=== PATIENT | female | born 1935 | race Caucasian/White ===

== ENCOUNTER 2016-09-30 09:45 | Outpatient (CLI) | payer OTHER ==
[2014-09-28 06:53] VITALS: BP 117/57
--- NOTE | 2016-09-30 11:11 | Diagnostic Imaging Report ---
MAXWELL CRUZ [facility] [address] [facility].[address] [address] Report Submission Date: Sep 30, 2016 10:58:38 AM CDT Patient Study Name: LEWIS JACK Date: Sep 30, 2016 10:06:00 AM CDT Modality Type: US Gender: F Description: UNILAT LTD STDY EXT VEINS : 31 Institution: [facility] Physician: MAXWELL CRUZ Examination: Ultrasound vein History: Calf discomfort Findings: Sonographic evaluation of the left lower extremity venous system from the groin to the popliteal fossa inclusive. Luminal filling defect identified beginning with at the level the proximal femoral vein extending inferiorly to the popliteal vein. No appreciable flow centrally. No response to augmentation. Remaining been structures without gross irregularity. No popliteal region fluid collection. Impression: Deep venous thrombosis identified extending from the proximal femoral vein inferiorly to the popliteal vein. Electronically signed on Sep 30, 2016 10:58:38 AM CDT by: Alvaro WHARTON
== END 2016-09-30 09:46 ==
LOC: RAD 09:45
PROVIDERS: ATTEND Physician Assistant
DX: M79.605 Pain in left leg (principal); M79.89 Other specified soft tissue disorders
CPT/HCPCS: 93971

== ENCOUNTER 2016-10-11 10:18 | Outpatient (CLI) | payer OTHER ==
[2014-09-28 06:53] VITALS: BP 117/57
[2016-10-11 11:04] LABS: eGFR (African) > 60; eGFR (Non-African) > 60
== END 2016-10-11 10:20 ==
LOC: LAB 10:18
PROVIDERS: ATTEND Physician Assistant
DX: I10 Essential (primary) hypertension (principal)
CPT/HCPCS: 36415; 80053

== ENCOUNTER 2016-11-12 11:35 | Inpatient (IN) | payer OTHER ==
[2016-11-12] MEDS ORDERED: LORATADINE 10 MG TABLET PO PRN (12:27)
--- NOTE | 2016-11-12 12:37 | History and Physical Report ---
History of Present Illnes - History of Present Illness Reason for Visit: Right middle lobe pneumonia, weakness History of Present Illness: This is an 81 year old patient of Dr. Clemente's who I saw last week with cough and wheezing. At that time, I treated her with cefuroxime at 250 mg po qd. She returns today for a recheck and continues to have shortness of breath and wheezing and just generally does not feel well. She denies any hemoptysis. Her chest X ray shows a right perihilar infiltrate and there may be some infiltrate in the right upper lobe also. She is on oxygen at home and has been using her nebulizer as well, but says that she is not getting much benefit from it. - Past Medical History Cardiac: HTN Pulmonary: Asthma Gastrointestinal: GERD, Other (Colon cancer 2012 - [id number]) Heme/Onc: Anemia NOS Psych: Anxiety Infectious Disease: Other (h/o C diff 2012) Endocrine: Osteoporosis - Past Surgical History Past Surgical History: Other (Right hemicolectomy for necrotic appendix (08/14) followed by further colonic resection in 01/14 due to colon cancer. Decortication of right sided empyema) - Past Social History Smoke: No Alcohol: None Drugs: None Lives: Alone ( a year ago.) Domestic Violence: Negative - Health Maintenance Health Maintenance: Influenza Vaccine, Pneumococcal Vaccine, Mammogram, Colonoscopy (05/19 - negative), DEXA Influenza Vaccine: Current for this Influenza Season Pneumonia Vaccine: Yes Resuscitation Status: Full code Review of Systems - Review of Systems Constitutional: Weakness, Malaise Eyes: negative: pain ENT: negative: Ear Pain Respiratory: Cough, SOB with Excertion, Wheezing, Other (productive cough) Cardiovascular: negative: Chest Pain Gastrointestinal: Vomiting. negative: Nausea Genitourinary: negative: Dysuria Musculoskeletal: negative: Neck Pain Skin: negative: Rash Neurological: Weakness. negative: Numbness, Change in Speech - Medications/Allergies Allergies/Adverse Reactions: Allergies Allergy/AdvReac Type Severity Reaction Status Date / Time penicillin G Allergy Unknown Verified 04/26/12 18:20 Current Inpatient Medications: Current Inpatient Medications Albuterol/Ipratropium (Duoneb) 3 ml NEB QID [facility] Carvedilol (Coreg) 12.5 mg PO BID [facility] Cholecalciferol (Vitamin D-3) 1,000 unit PO DAILY [facility] Ferrous Sulfate (Feosol) 325 mg PO [id number] [facility] Fluticasone Propionate (Flonase Nasal [place]) 1 spray NS DAILY [facility] Hydrochlorothiazide (Hydrodiuril) 25 mg PO DAILY [facility] Azithromycin 250 mg/ Sodium (Chloride) 250 mls @ 125 mls/hr IV Q24H [facility] Stop: 11/22/16 12:59 Ceftriaxone Sodium 1 gm/ (Sodium Chloride) 50 mls @ 100 mls/hr IV QD [facility] Loratadine (Claritin) 10 mg PO DAILY PRN PRN Reason: Allergy Symptoms Montelukast Sodium (Singulair) 10 mg PO HS [facility] Pantoprazole Sodium (Protonix) 40 mg PO 0700 [facility] Exam - Exam General: Alert, Oriented to Person, Oriented to Place, Mild distress (due to cough and wheezing) HEENT: Atraumatic, PERRLA Neck: No: Stridor Lungs: Wheezes, Prolonged Expiration, Decreased Air Movement Cardiovascular: Irregularly Irregular Murmur: No: Systolic Murmur Abdomen: Normal bowel sounds, Soft, No tenderness Genitourinary: No: Other Male Genitourinary: No: Other Female Genitourinary: No: Other Integumentary: Normal, [place], Warm Extremities: No clubbing, No cyanosis, Other (trace edema) Neurological: Normal speech Psych/Mental Status: Mental status NL - Laboratory Results Laboratory Results: CXR shows infiltrates as in HPI Labs pending Assessment/Plan - Assessment/Plan (1) Pneumonia Status: Acute Current Visit: Yes Qualifiers: Pneumonia type: due to unspecified organism Laterality: right Lung location: middle lobe of lung Qualified Code(s): J18.1 - Lobar pneumonia, unspecified organism Assessment: Suppemental O2/Rocephin/azithromycin (2) Asthma with acute exacerbation Status: Acute Current Visit: No Qualifiers: Asthma severity: moderate persistent Qualified Code(s): J45.41 - Moderate persistent asthma with (acute) exacerbation Assessment: Continue nebulizer treatments (3) Hypertension Status: Acute Current Visit: No Assessment: Continue current antihypertensive medications VTE Assessment - RISK FACTOR SCORE VTE RISK FACTOR SCORES: AGE OVER 60 YEARS, ACUTE INFECTION OTHER THEN SEPSIS ( On Eliquis) - RISK VTE MODERATE RISK: SCORE OF 2 (RISK PROXIMAL DVT 2-4%) PROPHYAXIS NEEDED
[2016-11-12 13:48] LABS: BASOPHILS % 0.3 (0.0-1.5); EOSINOPHILS % 1.3 % (0.0-6.8); MEAN CORPUSCULAR HEMOGLOBIN 30.8 pg (28.0-34.0); MEAN CORPUSCULAR VOLUME 98.3 fl (80.0-100.0); MONOCYTES % 2.6 % (0.0-11.0); NEUTROPHILS # 6.3 # k/uL (1.4-7.7)
[2016-11-12 14:07] LABS: eGFR (African) > 60; eGFR (Non-African) > 60
[2016-11-12] MEDS ORDERED: MONTELUKAST SODIUM 10 MG TABLET PO ONE (14:08)
[2016-11-12] MEDS: IPRATROPIUM/ALBUTEROL SULFATE 3 ML AMPUL.NEB NEB SCH ×3 (14:30→19:45)
--- NOTE | 2016-11-12 15:01 | Diagnostic Imaging Report ---
YSABEL SOLIMAN [facility] [address] [facility].[address] [address] Report Submission Date: Nov 12, 2016 2:53:44 PM CDT Patient Study Name: LEWIS JACK Date: Nov 12, 2016 11:41:52 AM CDT Modality Type: CR Gender: F Description: CHEST : 31 Institution: [facility] Physician: YSABEL SOLIMAN Chest -two views CLINICAL HISTORY: Cough and wheezing. FINDINGS: Examination of the chest in PA and lateral views with no prior film for comparison demonstrates right perihilar infiltrate. There is mild blunting of the right costophrenic angle. The left lung is clear. Cardiac silhouette is prominent and the aorta is atherosclerotic. IMPRESSION: Right perihilar infiltrate. Aortic atherosclerosis and mild cardiomegaly Electronically signed on Nov 12, 2016 2:53:44 PM CDT by: Valentin WHARTON
[2016-11-12 15:07] VITALS: BMI 70.7
[2016-11-12] MEDS ORDERED: SALINE FLUSH 10 ML DISP.SYRIN IVF ONE (15:24)
[2016-11-12] MEDS: cefTRIAXone SODIUM 1 GM in 0.9 % SODIUM CHLORIDE 50 ML IV SCH (15:46)
[2016-11-12] MEDS: AZITHROMYCIN 250 MG in 0.9 % SODIUM CHLORIDE 250 ML IV SCH (17:58)
[2016-11-12] MEDS: FERROUS SULFATE 325 MG TABLET PO SCH ×2 (19:02→19:47)
[2016-11-12] MEDS: CARVEDILOL 12.5 MG TABLET PO SCH (20:53)
[2016-11-12] MEDS: APIXABAN 2.5 MG TABLET PO SCH (20:54)
[2016-11-12] MEDS: MONTELUKAST SODIUM 10 MG TABLET PO SCH (20:55)
[2016-11-12] MEDS: MELATONIN 3 MG TABLET PO SCH (22:30)
[2016-11-13] MEDS: PANTOPRAZOLE SODIUM 40 MG TABLET PO SCH (06:37)
[2016-11-13 06:55] LABS: MEAN CORPUSCULAR HEMOGLOBIN 30.8 pg (28.0-34.0); MEAN CORPUSCULAR VOLUME 99.7 fl (80.0-100.0)
[2016-11-13 07:15] LABS: eGFR (African) > 60; eGFR (Non-African) > 60
--- NOTE | 2016-11-13 07:51 | Inpatient Progress Note ---
Subjective - Required Recertification Statement I anticipate X number of days because-include discharge plan: 2 - Review of Systems Subjective: Patient feeling some better today. Slept better with melatonin. Goes to bathroom without O2 on - does ok. Feels her nebulizers wear off. Pulmonary: Cough Objective - Exam Vitals and I&O: Vital Signs Temp 97.6 F 11/13/16 05:33 Pulse 94 H 11/13/16 05:33 Resp 16 11/13/16 05:33 BP 133/69 11/13/16 05:33 Pulse Ox 94 11/13/16 05:33 Intake & Output 11/12/16 11/12/16 11/13/16 11:59 23:59 11:59 Intake Total 530 360 Balance 530 360 Weight 159 kg Intake: Oral 530 360 Other: Voiding Method Toilet Toilet # Voids 2 3 General: Alert, Oriented to Person, Oriented to Place, Oriented to Time, Cooperative, No acute distress Lungs: Wheezes, Rhonchi Cardiovascular: Regular rate - Results Results: Laboratory Results WBC 6.00 K/ul (4.00-12.00) 11/13/16 06:40 RBC 3.93 M/ul (3.90-5.20) 11/13/16 06:40 Hgb 12.1 g/dL (12.0-16.0) 11/13/16 06:40 Hct 39.2 % (34.5-46.5) 11/13/16 06:40 MCV 99.7 fl (80.0-100.0) 11/13/16 06:40 MCH 30.8 pg (28.0-34.0) 11/13/16 06:40 MCHC 30.9 g/dL (30.0-36.0) 11/13/16 06:40 RDW 12.9 % (11.3-14.3) 11/13/16 06:40 Plt Count 198 K/mm3 (130-400) 11/13/16 06:40 Neut % (Auto) 83.3 % (39.0-79.0) H 11/12/16 13:40 Lymph % (Auto) 11.8 % (16.0-50.0) L 11/12/16 13:40 [place] % (Auto) 2.6 % (0.0-11.0) 11/12/16 13:40 Eos % (Auto) 1.3 % (0.0-6.8) 11/12/16 13:40 Baso % (Auto) 0.3 (0.0-1.5) 11/12/16 13:40 Neut # (Auto) 6.3 # k/uL (1.4-7.7) 11/12/16 13:40 Lymph # (Auto) 0.9 # k/uL (0.6-4.0) 11/12/16 13:40 [place] # (Auto) 0.2 # k/uL (0.0-0.9) 11/12/16 13:40 Eos # (Auto) 0.1 # k/uL (0.0-0.6) 11/12/16 13:40 Baso # (Auto) 0.0 # k/uL (0.0-0.5) 11/12/16 13:40 Reactive Lymphs % 0.7 % (0.0-5.0) 11/12/16 13:40 Reactive Lymphs # 0.0 # k/uL (0.0-0.8) 11/12/16 13:40 Sodium 142 mmol/L (136-145) 11/13/16 06:40 Potassium 4.1 mmol/L (3.5-5.0) 11/13/16 06:40 Chloride 105 mmol/L (98-110) 11/13/16 06:40 Carbon Dioxide 32 mmol/L (20-32) 11/13/16 06:40 BUN 16 mg/dL (10-26) 11/13/16 06:40 Creatinine 0.8 mg/dL (0.4-1.5) 11/13/16 06:40 Estimated Creat Clear 157 11/13/16 06:40 Est GFR ( Amer) > 60 (60-) 11/13/16 06:40 Est GFR (Non-Af Amer) > 60 (60-) 11/13/16 06:40 Glucose 99 mg/dL (70-99) 11/13/16 06:40 Calcium 10.7 mg/dL (8.5-10.5) H 11/13/16 06:40 Total Bilirubin 0.5 mg/dL (0.2-1.2) 11/12/16 13:40 AST 17 U/L (0-41) 11/12/16 13:40 ALT 13 U/L (0-45) 11/12/16 13:40 Alkaline Phosphatase 75 U/L (46-116) 11/12/16 13:40 Total Protein 6.9 g/dL (6.0-8.5) 11/12/16 13:40 Albumin 4.2 g/dL (3.0-5.5) 11/12/16 13:40 Assessment/Plan - Assessment/Plan (1) Pneumonia Status: Acute Current Visit: Yes Qualifiers: Pneumonia type: due to unspecified organism Laterality: right Lung location: middle lobe of lung Qualified Code(s): J18.1 - Lobar pneumonia, unspecified organism Plan: Continue on Rocephin and zithromax. Afebrile. (2) GERD (gastroesophageal reflux disease) Status: Acute Current Visit: Yes (3) Asthma with acute exacerbation Status: Acute Current Visit: No Qualifiers: Asthma severity: moderate persistent Qualified Code(s): J45.41 - Moderate persistent asthma with (acute) exacerbation Plan: Change duonebs to q6hr from qid to cover night better. Add solumedrol. (4) Hypertension Status: Acute Current Visit: No
[2016-11-13] MEDS ORDERED: SALINE FLUSH 10 ML DISP.SYRIN IVF ONE ×4 (08:03→21:17)
[2016-11-13] MEDS: FLUTICASONE PROPIONATE 120 SPRAY/16 GR BOTTLE NS SCH (08:40)
[2016-11-13] MEDS: methylPREDNISolone SOD SUCC 40 MG/ML VIAL IVP SCH ×3 (08:46→21:42)
[2016-11-13] MEDS: APIXABAN 2.5 MG TABLET PO SCH ×2 (08:47→20:35)
[2016-11-13] MEDS: CARVEDILOL 12.5 MG TABLET PO SCH ×2 (08:48→20:34)
[2016-11-13] MEDS: CHOLECALCIFEROL (VIT D3) 1,000 UNIT TABLET PO SCH (08:48)
[2016-11-13] MEDS: HYDROCHLOROTHIAZIDE 25 MG TABLET PO SCH (08:49)
[2016-11-13] MEDS: FERROUS SULFATE 325 MG TABLET PO SCH ×2 (10:54→18:09)
[2016-11-13] MEDS: AZITHROMYCIN 250 MG in 0.9 % SODIUM CHLORIDE 250 ML IV SCH (13:00)
[2016-11-13] MEDS: IPRATROPIUM/ALBUTEROL SULFATE 3 ML AMPUL.NEB NEB SCH ×2 (13:09→17:55)
[2016-11-13] MEDS: cefTRIAXone SODIUM 1 GM in 0.9 % SODIUM CHLORIDE 50 ML IV SCH (18:35)
[2016-11-13] MEDS: MONTELUKAST SODIUM 10 MG TABLET PO SCH (20:35)
[2016-11-13] MEDS: MELATONIN 3 MG TABLET PO SCH (20:36)
[2016-11-14] MEDS: IPRATROPIUM/ALBUTEROL SULFATE 3 ML AMPUL.NEB NEB SCH ×5 (00:54→23:53)
[2016-11-14] MEDS ORDERED: SALINE FLUSH 10 ML DISP.SYRIN IVF ONE ×3 (05:15→16:52)
[2016-11-14] MEDS: methylPREDNISolone SOD SUCC 40 MG/ML VIAL IVP SCH ×3 (05:20→20:40)
[2016-11-14] MEDS: PANTOPRAZOLE SODIUM 40 MG TABLET PO SCH (05:59)
[2016-11-14] MEDS: APIXABAN 2.5 MG TABLET PO SCH ×2 (08:44→20:38)
[2016-11-14] MEDS: CARVEDILOL 12.5 MG TABLET PO SCH ×2 (08:44→20:38)
[2016-11-14] MEDS: HYDROCHLOROTHIAZIDE 25 MG TABLET PO SCH (08:45)
[2016-11-14] MEDS: FLUTICASONE PROPIONATE 120 SPRAY/16 GR BOTTLE NS SCH (08:45)
[2016-11-14] MEDS: CHOLECALCIFEROL (VIT D3) 1,000 UNIT TABLET PO SCH (08:46)
--- NOTE | 2016-11-14 09:14 | Inpatient Progress Note ---
Subjective - Required Recertification Statement I anticipate X number of days because-include discharge plan: 1 - Review of Systems Subjective: Patient feels her breathing has improved with steroids. Less cough and wheezing. Objective - Exam Vitals and I&O: Vital Signs Temp 97.7 F 11/14/16 06:00 Pulse 67 11/14/16 06:00 Resp 16 11/14/16 06:00 BP 129/62 11/14/16 06:00 Pulse Ox 92 11/14/16 06:00 Intake & Output 11/13/16 11/13/16 11/14/16 11:59 23:59 11:59 Intake Total 266 788 3090 Balance 722 078 0230 Intake: IV 20 Right Hand 20 Oral 503 863 8498 Other: Voiding Method Toilet Toilet # Voids 3 5 General: Alert, Oriented to Person, Oriented to Place, Oriented to Time, Cooperative, No acute distress Lungs: Rhonchi (Greatly improved from yesterday.) Cardiovascular: Regular rate - Results Results: Laboratory Results WBC 6.00 K/ul (4.00-12.00) 11/13/16 06:40 RBC 3.93 M/ul (3.90-5.20) 11/13/16 06:40 Hgb 12.1 g/dL (12.0-16.0) 11/13/16 06:40 Hct 39.2 % (34.5-46.5) 11/13/16 06:40 MCV 99.7 fl (80.0-100.0) 11/13/16 06:40 MCH 30.8 pg (28.0-34.0) 11/13/16 06:40 MCHC 30.9 g/dL (30.0-36.0) 11/13/16 06:40 RDW 12.9 % (11.3-14.3) 11/13/16 06:40 Plt Count 198 K/mm3 (130-400) 11/13/16 06:40 Neut % (Auto) 83.3 % (39.0-79.0) H 11/12/16 13:40 Lymph % (Auto) 11.8 % (16.0-50.0) L 11/12/16 13:40 [place] % (Auto) 2.6 % (0.0-11.0) 11/12/16 13:40 Eos % (Auto) 1.3 % (0.0-6.8) 11/12/16 13:40 Baso % (Auto) 0.3 (0.0-1.5) 11/12/16 13:40 Neut # (Auto) 6.3 # k/uL (1.4-7.7) 11/12/16 13:40 Lymph # (Auto) 0.9 # k/uL (0.6-4.0) 11/12/16 13:40 [place] # (Auto) 0.2 # k/uL (0.0-0.9) 11/12/16 13:40 Eos # (Auto) 0.1 # k/uL (0.0-0.6) 11/12/16 13:40 Baso # (Auto) 0.0 # k/uL (0.0-0.5) 11/12/16 13:40 Reactive Lymphs % 0.7 % (0.0-5.0) 11/12/16 13:40 Reactive Lymphs # 0.0 # k/uL (0.0-0.8) 11/12/16 13:40 Sodium 142 mmol/L (136-145) 11/13/16 06:40 Potassium 4.1 mmol/L (3.5-5.0) 11/13/16 06:40 Chloride 105 mmol/L (98-110) 11/13/16 06:40 Carbon Dioxide 32 mmol/L (20-32) 11/13/16 06:40 BUN 16 mg/dL (10-26) 11/13/16 06:40 Creatinine 0.8 mg/dL (0.4-1.5) 11/13/16 06:40 Estimated Creat Clear 157 11/13/16 06:40 Est GFR ( Amer) > 60 (60-) 11/13/16 06:40 Est GFR (Non-Af Amer) > 60 (60-) 11/13/16 06:40 Glucose 99 mg/dL (70-99) 11/13/16 06:40 Calcium 10.7 mg/dL (8.5-10.5) H 11/13/16 06:40 Total Bilirubin 0.5 mg/dL (0.2-1.2) 11/12/16 13:40 AST 17 U/L (0-41) 11/12/16 13:40 ALT 13 U/L (0-45) 11/12/16 13:40 Alkaline Phosphatase 75 U/L (46-116) 11/12/16 13:40 Total Protein 6.9 g/dL (6.0-8.5) 11/12/16 13:40 Albumin 4.2 g/dL (3.0-5.5) 11/12/16 13:40 Assessment/Plan - Assessment/Plan (1) Pneumonia Status: Acute Current Visit: Yes Qualifiers: Pneumonia type: due to unspecified organism Laterality: right Lung location: middle lobe of lung Qualified Code(s): J18.1 - Lobar pneumonia, unspecified organism Plan: Continue IV antibiotics. Plan to transfer to SNF tomorrow if still doing well. (2) GERD (gastroesophageal reflux disease) Status: Acute Current Visit: Yes (3) Asthma with acute exacerbation Status: Acute Current Visit: No Qualifiers: Asthma severity: moderate persistent Qualified Code(s): J45.41 - Moderate persistent asthma with (acute) exacerbation Plan: Continue IV steroids. Plan to taper slowly when goes to po. (4) Hypertension Status: Acute Current Visit: No
[2016-11-14] MEDS: FERROUS SULFATE 325 MG TABLET PO SCH ×2 (09:23→18:13)
[2016-11-14 11:11] LABS: eGFR (African) > 60; eGFR (Non-African) > 60
[2016-11-14] MEDS: cefTRIAXone SODIUM 1 GM in 0.9 % SODIUM CHLORIDE 50 ML IV SCH (12:45)
[2016-11-14] MEDS: AZITHROMYCIN 250 MG in 0.9 % SODIUM CHLORIDE 250 ML IV SCH (14:44)
[2016-11-14] MEDS: MONTELUKAST SODIUM 10 MG TABLET PO SCH (20:39)
[2016-11-14] MEDS: MELATONIN 3 MG TABLET PO SCH (20:40)
[2016-11-15] MEDS ORDERED: SALINE FLUSH 10 ML DISP.SYRIN IVF ONE (02:43)
[2016-11-15] MEDS: PANTOPRAZOLE SODIUM 40 MG TABLET PO SCH (06:09)
[2016-11-15] MEDS: methylPREDNISolone SOD SUCC 40 MG/ML VIAL IVP SCH (06:09)
[2016-11-15] MEDS: IPRATROPIUM/ALBUTEROL SULFATE 3 ML AMPUL.NEB NEB SCH (06:15)
[2016-11-15] MEDS ORDERED: GUAIFENESIN PO PRN (07:51)
[2016-11-15] MEDS ORDERED: CODEINE PO PRN (07:51)
[2016-11-15] MEDS: FLUTICASONE PROPIONATE 120 SPRAY/16 GR BOTTLE NS SCH (09:25)
[2016-11-15] MEDS: CARVEDILOL 12.5 MG TABLET PO SCH (09:28)
[2016-11-15] MEDS: HYDROCHLOROTHIAZIDE 25 MG TABLET PO SCH (09:28)
[2016-11-15] MEDS: APIXABAN 2.5 MG TABLET PO SCH (09:28)
[2016-11-15] MEDS: CHOLECALCIFEROL (VIT D3) 1,000 UNIT TABLET PO SCH (09:28)
--- NOTE | 2016-11-15 09:28 | Discharge Summary ---
Discharge Summary - Discharge Sumary History of Present Illness: This is an 81 year old patient of Dr. Clemente'terry who I saw last week with cough and wheezing. At that time, I treated her with cefuroxime at 250 mg po qd. She returns today for a recheck and continues to have shortness of breath and wheezing and just generally does not feel well. She denies any hemoptysis. Her chest X ray shows a right perihilar infiltrate and there may be some infiltrate in the right upper lobe also. She is on oxygen at home and has been using her nebulizer as well, but says that she is not getting much benefit from it. Condition at Discharge: Stable Home Medications: Ambulatory Orders Medication Instructions Recorded Cetirizine HCl [Zyrtec] 10 mg PO D 09/05/14 Cholecalciferol [Vitamin D-3] 1,000 unit PO DAILY 09/05/14 Fluticasone Propionate [Flonase] 1 spray NS D 09/05/14 QUEtiapine FUMARATE [Seroquel] 25 mg PO HS 09/05/14 Consultations this Visit: None Procedures this Visit: None Allergies/Adverse Reactions: Allergies Allergy/AdvReac Type Severity Reaction Status Date / Time penicillin G Allergy Unknown Verified 04/26/12 18:20 Discharge Summary: Patient was admitted Acute for R perihilar pneumonia that failed outpatient treatment. She continued to have wheezing 24 hours after admit so IV steroids were started. She responded well to these. O2 to keep SATS >90%. We were able to wean down duonebs. Patient feeling much better but still too weak to return home therefore she was transferred to SNF. Hospital Course: Discharge DX: R pneumonia. Asthma exacerbation. HTN. Disposition: SNF
[2016-11-15] MEDS ORDERED: guaiFENesin/CODEINE PHOS 5ML SYR PO ONE ×3 (09:31→13:14)
[2016-11-15 09:48] VITALS: BP 150/70
[2016-11-15] MEDS ORDERED: BENZONATATE 100 MG CAPSULE PO ONE (13:14)
== END 2016-11-15 09:51 | DRG 194 ==
LOC: RAD 11:35 → SOUTH 12:09
PROVIDERS: ADMIT Family Medicine; ATTEND Family Medicine
DX: J18.9 Pneumonia, unspecified organism (principal); J45.901 Unspecified asthma with (acute) exacerbation; I10 Essential (primary) hypertension
CPT/HCPCS: 36415; 71020; 80048; 80053; 85025; 85027; A9270; J0456; J0696; J2920; J7050; 99223; 99232; 99238; J1030; S1016

== ENCOUNTER 2016-11-15 09:51 | Inpatient (IN) | payer OTHER ==
[2016-11-15 11:05] VITALS: BMI 38.2
[2016-11-15] MEDS ORDERED: ALBUTEROL 90MCG/PUFF INHALER IH PRN (11:30)
[2016-11-15] MEDS: BENZONATATE 100 MG CAPSULE PO SCH ×2 (13:15→18:26)
[2016-11-15] MEDS: guaiFENesin/CODEINE PHOS 30ML BOTTLE PO PRN (13:15)
[2016-11-15] MEDS: CEFUROXIME AXETIL 250 MG TABLET PO SCH (19:51)
[2016-11-15] MEDS: CARVEDILOL 12.5 MG TABLET PO SCH (19:51)
[2016-11-15] MEDS: APIXABAN 2.5 MG TABLET PO SCH (19:51)
[2016-11-15] MEDS: QUEtiapine FUMARATE 25 MG TABLET PO SCH (19:52)
[2016-11-16] MEDS: PANTOPRAZOLE SODIUM 40 MG TABLET PO SCH (06:08)
[2016-11-16] MEDS: LORATADINE 10 MG TABLET PO SCH (09:40)
[2016-11-16] MEDS: CARVEDILOL 12.5 MG TABLET PO SCH ×2 (09:40→19:54)
[2016-11-16] MEDS: AZITHROMYCIN 250 MG TABLET PO SCH (09:40)
[2016-11-16] MEDS: CEFUROXIME AXETIL 250 MG TABLET PO SCH ×2 (09:40→19:53)
[2016-11-16] MEDS: CHOLECALCIFEROL 1,000 UNIT TABLET PO SCH (09:40)
[2016-11-16] MEDS: APIXABAN 2.5 MG TABLET PO SCH ×2 (09:40→19:53)
[2016-11-16] MEDS: MONTELUKAST SODIUM 10 MG TABLET PO SCH (09:41)
[2016-11-16] MEDS: HYDROCHLOROTHIAZIDE 25 MG TABLET PO SCH (09:41)
[2016-11-16] MEDS: predniSONE 20 MG TABLET PO SCH (09:41)
[2016-11-16] MEDS: FLUTICASONE PROPIONATE 120 SPRAY/16 GR BOTTLE NS SCH (09:41)
[2016-11-16] MEDS: BENZONATATE 100 MG CAPSULE PO SCH ×3 (09:42→18:35)
[2016-11-16] MEDS: DOCUSATE SODIUM 100 MG CAPSULE PO SCH ×2 (09:43→19:53)
[2016-11-16] MEDS: QUEtiapine FUMARATE 25 MG TABLET PO SCH (19:53)
[2016-11-16] MEDS ORDERED: guaiFENesin/CODEINE PHOS 5ML SYR PO ONE ×2 (21:38→21:44)
[2016-11-16] MEDS: guaiFENesin/CODEINE PHOS 30ML BOTTLE PO PRN (21:41)
[2016-11-17] MEDS: PANTOPRAZOLE SODIUM 40 MG TABLET PO SCH (06:09)
[2016-11-17] MEDS: CEFUROXIME AXETIL 250 MG TABLET PO SCH ×2 (08:22→19:43)
[2016-11-17] MEDS: DOCUSATE SODIUM 100 MG CAPSULE PO SCH ×2 (08:22→19:44)
[2016-11-17] MEDS: LORATADINE 10 MG TABLET PO SCH (08:22)
[2016-11-17] MEDS: CARVEDILOL 12.5 MG TABLET PO SCH ×2 (08:22→19:43)
[2016-11-17] MEDS: HYDROCHLOROTHIAZIDE 25 MG TABLET PO SCH (08:23)
[2016-11-17] MEDS: FLUTICASONE PROPIONATE 120 SPRAY/16 GR BOTTLE NS SCH (08:23)
[2016-11-17] MEDS: APIXABAN 2.5 MG TABLET PO SCH ×2 (08:23→19:43)
[2016-11-17] MEDS: predniSONE 20 MG TABLET PO SCH (08:23)
[2016-11-17] MEDS: CHOLECALCIFEROL 1,000 UNIT TABLET PO SCH (08:24)
[2016-11-17] MEDS: MONTELUKAST SODIUM 10 MG TABLET PO SCH (08:24)
[2016-11-17] MEDS: AZITHROMYCIN 250 MG TABLET PO SCH (08:24)
[2016-11-17] MEDS: BENZONATATE 100 MG CAPSULE PO SCH ×3 (08:26→18:17)
[2016-11-17] MEDS: QUEtiapine FUMARATE 25 MG TABLET PO SCH (19:43)
[2016-11-18] MEDS: PANTOPRAZOLE SODIUM 40 MG TABLET PO SCH (06:03)
[2016-11-18] MEDS: CHOLECALCIFEROL 1,000 UNIT TABLET PO SCH (08:43)
[2016-11-18] MEDS: MONTELUKAST SODIUM 10 MG TABLET PO SCH (08:43)
[2016-11-18] MEDS: BENZONATATE 100 MG CAPSULE PO SCH ×3 (08:44→16:52)
[2016-11-18] MEDS: predniSONE 20 MG TABLET PO SCH (08:44)
[2016-11-18] MEDS: CEFUROXIME AXETIL 250 MG TABLET PO SCH ×2 (08:44→20:59)
[2016-11-18] MEDS: LORATADINE 10 MG TABLET PO SCH (08:44)
[2016-11-18] MEDS: CARVEDILOL 12.5 MG TABLET PO SCH ×2 (08:44→20:59)
[2016-11-18] MEDS: FLUTICASONE PROPIONATE 120 SPRAY/16 GR BOTTLE NS SCH (08:45)
[2016-11-18] MEDS: DOCUSATE SODIUM 100 MG CAPSULE PO SCH ×2 (08:45→21:00)
[2016-11-18] MEDS: HYDROCHLOROTHIAZIDE 25 MG TABLET PO SCH (08:45)
[2016-11-18] MEDS: APIXABAN 2.5 MG TABLET PO SCH ×2 (08:45→21:00)
[2016-11-18] MEDS: QUEtiapine FUMARATE 25 MG TABLET PO SCH (21:00)
[2016-11-19] MEDS ORDERED: guaiFENesin/CODEINE PHOS 5ML SYR PO ONE (00:06)
[2016-11-19] MEDS: guaiFENesin/CODEINE PHOS 30ML BOTTLE PO PRN (00:08)
[2016-11-19] MEDS: PANTOPRAZOLE SODIUM 40 MG TABLET PO SCH (06:17)
[2016-11-19] MEDS: predniSONE 10 MG TABLET PO SCH (08:15)
[2016-11-19] MEDS: CHOLECALCIFEROL 1,000 UNIT TABLET PO SCH (08:15)
[2016-11-19] MEDS: LORATADINE 10 MG TABLET PO SCH (08:15)
[2016-11-19] MEDS: FLUTICASONE PROPIONATE 120 SPRAY/16 GR BOTTLE NS SCH (08:15)
[2016-11-19] MEDS: HYDROCHLOROTHIAZIDE 25 MG TABLET PO SCH (08:15)
[2016-11-19] MEDS: DOCUSATE SODIUM 100 MG CAPSULE PO SCH ×4 (08:16→21:26)
[2016-11-19] MEDS: APIXABAN 2.5 MG TABLET PO SCH ×2 (08:16→20:23)
[2016-11-19] MEDS: CEFUROXIME AXETIL 250 MG TABLET PO SCH ×2 (08:16→20:22)
[2016-11-19] MEDS: MONTELUKAST SODIUM 10 MG TABLET PO SCH (08:16)
[2016-11-19] MEDS: CARVEDILOL 12.5 MG TABLET PO SCH ×2 (08:16→20:22)
[2016-11-19] MEDS: QUEtiapine FUMARATE 25 MG TABLET PO SCH (21:24)
[2016-11-20] MEDS: PANTOPRAZOLE SODIUM 40 MG TABLET PO SCH (06:10)
[2016-11-20] MEDS: DOCUSATE SODIUM 100 MG CAPSULE PO SCH ×2 (08:56→19:28)
[2016-11-20] MEDS: CARVEDILOL 12.5 MG TABLET PO SCH ×2 (08:56→19:28)
[2016-11-20] MEDS: predniSONE 10 MG TABLET PO SCH (08:57)
[2016-11-20] MEDS: LORATADINE 10 MG TABLET PO SCH (08:59)
[2016-11-20] MEDS: CEFUROXIME AXETIL 250 MG TABLET PO SCH ×2 (08:59→19:28)
[2016-11-20] MEDS: APIXABAN 2.5 MG TABLET PO SCH ×2 (09:00→19:28)
[2016-11-20] MEDS: FLUTICASONE PROPIONATE 120 SPRAY/16 GR BOTTLE NS SCH (09:02)
[2016-11-20] MEDS: MONTELUKAST SODIUM 10 MG TABLET PO SCH (09:04)
[2016-11-20] MEDS: HYDROCHLOROTHIAZIDE 25 MG TABLET PO SCH (09:04)
[2016-11-20] MEDS: CHOLECALCIFEROL 1,000 UNIT TABLET PO SCH (09:05)
[2016-11-20] MEDS ORDERED: guaiFENesin/CODEINE PHOS 5ML SYR PO ONE (20:59)
[2016-11-20] MEDS: QUEtiapine FUMARATE 25 MG TABLET PO SCH (21:04)
[2016-11-20] MEDS: guaiFENesin/CODEINE PHOS 30ML BOTTLE PO PRN (21:04)
[2016-11-21] MEDS: FLUTICASONE PROPIONATE 120 SPRAY/16 GR BOTTLE NS SCH (05:53)
[2016-11-21] MEDS: predniSONE 10 MG TABLET PO SCH (05:53)
[2016-11-21] MEDS: DOCUSATE SODIUM 100 MG CAPSULE PO SCH ×2 (05:53→20:28)
[2016-11-21] MEDS: PANTOPRAZOLE SODIUM 40 MG TABLET PO SCH (05:54)
[2016-11-21] MEDS: CEFUROXIME AXETIL 250 MG TABLET PO SCH (05:54)
[2016-11-21] MEDS: MONTELUKAST SODIUM 10 MG TABLET PO SCH (05:54)
[2016-11-21] MEDS: CHOLECALCIFEROL 1,000 UNIT TABLET PO SCH (05:54)
[2016-11-21] MEDS: APIXABAN 2.5 MG TABLET PO SCH ×2 (05:55→20:27)
[2016-11-21] MEDS: LORATADINE 10 MG TABLET PO SCH (05:55)
[2016-11-21] MEDS: HYDROCHLOROTHIAZIDE 25 MG TABLET PO SCH (05:56)
[2016-11-21] MEDS: CARVEDILOL 12.5 MG TABLET PO SCH ×2 (05:56→21:42)
[2016-11-21] MEDS ORDERED: guaiFENesin/CODEINE PHOS 5ML SYR PO ONE ×2 (11:01→21:44)
[2016-11-21] MEDS: guaiFENesin/CODEINE PHOS 30ML BOTTLE PO PRN ×2 (11:04→21:46)
[2016-11-21] MEDS: QUEtiapine FUMARATE 25 MG TABLET PO SCH (21:42)
[2016-11-22] MEDS: PANTOPRAZOLE SODIUM 40 MG TABLET PO SCH (06:46)
[2016-11-22] MEDS: DOCUSATE SODIUM 100 MG CAPSULE PO SCH ×2 (08:43→19:36)
[2016-11-22] MEDS: CARVEDILOL 12.5 MG TABLET PO SCH ×2 (08:43→19:36)
[2016-11-22] MEDS: LORATADINE 10 MG TABLET PO SCH (08:43)
[2016-11-22] MEDS: predniSONE 20 MG TABLET PO SCH (08:44)
[2016-11-22] MEDS: CHOLECALCIFEROL 1,000 UNIT TABLET PO SCH (08:44)
[2016-11-22] MEDS: APIXABAN 2.5 MG TABLET PO SCH ×2 (08:44→19:36)
[2016-11-22] MEDS: MONTELUKAST SODIUM 10 MG TABLET PO SCH (08:44)
[2016-11-22] MEDS: HYDROCHLOROTHIAZIDE 25 MG TABLET PO SCH (08:44)
[2016-11-22] MEDS: FLUTICASONE PROPIONATE 120 SPRAY/16 GR BOTTLE NS SCH (08:44)
[2016-11-22] MEDS: QUEtiapine FUMARATE 25 MG TABLET PO SCH (19:36)
[2016-11-22] MEDS ORDERED: guaiFENesin/CODEINE PHOS 5ML SYR PO ONE (22:54)
[2016-11-22] MEDS: guaiFENesin/CODEINE PHOS 30ML BOTTLE PO PRN (22:58)
[2016-11-23] MEDS: PANTOPRAZOLE SODIUM 40 MG TABLET PO SCH (06:14)
[2016-11-23] MEDS: LORATADINE 10 MG TABLET PO SCH (09:34)
[2016-11-23] MEDS: APIXABAN 2.5 MG TABLET PO SCH ×2 (09:34→20:14)
[2016-11-23] MEDS: CARVEDILOL 12.5 MG TABLET PO SCH ×2 (09:34→20:14)
[2016-11-23] MEDS: DOCUSATE SODIUM 100 MG CAPSULE PO SCH ×2 (09:35→20:13)
[2016-11-23] MEDS: HYDROCHLOROTHIAZIDE 25 MG TABLET PO SCH (09:35)
[2016-11-23] MEDS: FLUTICASONE PROPIONATE 120 SPRAY/16 GR BOTTLE NS SCH (09:35)
[2016-11-23] MEDS: MONTELUKAST SODIUM 10 MG TABLET PO SCH (09:35)
[2016-11-23] MEDS: CHOLECALCIFEROL 1,000 UNIT TABLET PO SCH (09:35)
[2016-11-23] MEDS: predniSONE 20 MG TABLET PO SCH (09:36)
[2016-11-23] MEDS: QUEtiapine FUMARATE 25 MG TABLET PO SCH (20:14)
[2016-11-23] MEDS ORDERED: guaiFENesin/CODEINE PHOS 5ML SYR PO ONE (22:06)
[2016-11-23] MEDS: guaiFENesin/CODEINE PHOS 30ML BOTTLE PO PRN (22:07)
[2016-11-24] MEDS: PANTOPRAZOLE SODIUM 40 MG TABLET PO SCH (06:17)
[2016-11-24] MEDS: FLUTICASONE PROPIONATE 120 SPRAY/16 GR BOTTLE NS SCH (13:02)
[2016-11-24] MEDS: LORATADINE 10 MG TABLET PO SCH (13:02)
[2016-11-24] MEDS: APIXABAN 2.5 MG TABLET PO SCH ×2 (13:02→21:06)
[2016-11-24] MEDS: CARVEDILOL 12.5 MG TABLET PO SCH ×2 (13:02→21:05)
[2016-11-24] MEDS: DOCUSATE SODIUM 100 MG CAPSULE PO SCH ×2 (13:03→21:26)
[2016-11-24] MEDS: HYDROCHLOROTHIAZIDE 25 MG TABLET PO SCH (13:03)
[2016-11-24] MEDS: predniSONE 20 MG TABLET PO SCH (13:03)
[2016-11-24] MEDS: CHOLECALCIFEROL 1,000 UNIT TABLET PO SCH (13:03)
[2016-11-24] MEDS: MONTELUKAST SODIUM 10 MG TABLET PO SCH (13:03)
[2016-11-24] MEDS: QUEtiapine FUMARATE 25 MG TABLET PO SCH (21:06)
[2016-11-25] MEDS: PANTOPRAZOLE SODIUM 40 MG TABLET PO SCH (06:06)
--- NOTE | 2016-11-25 07:57 | Inpatient Progress Note ---
Subjective - Required Recertification Statement I anticipate X number of days because-include discharge plan: 7 - Review of Systems Subjective: Patient doing well. Breathing better. Objective - Exam Vitals and I&O: Vital Signs Temp 97.0 F L 11/24/16 19:52 Pulse 67 11/24/16 20:14 Resp 18 11/24/16 20:14 BP 143/61 11/24/16 19:52 Pulse Ox 93 11/24/16 19:52 Intake & Output 11/24/16 11/24/16 11/25/16 11:59 23:59 11:59 Intake Total 360 1400 Balance 360 1400 Weight 86 kg Intake: Oral 360 1400 Other: Voiding Method Toilet Toilet # Voids 2 3 General: Alert, Oriented to Person, Oriented to Place, Oriented to Time, Cooperative, No acute distress Lungs: Clear to auscultation (initial wheeze clear with cough) Cardiovascular: Regular rate Assessment/Plan - Assessment/Plan (1) Weakness Status: Acute Current Visit: Yes Plan: Improving. Continue PT/OT. (2) Asthma with acute exacerbation Status: Acute Current Visit: No Qualifiers: Asthma severity: moderate persistent Plan: Patient feeling better. Only needs her normal O2 at night.
[2016-11-25] MEDS: LORATADINE 10 MG TABLET PO SCH (09:08)
[2016-11-25] MEDS: DOCUSATE SODIUM 100 MG CAPSULE PO SCH ×2 (09:08→20:52)
[2016-11-25] MEDS: APIXABAN 2.5 MG TABLET PO SCH ×2 (09:08→20:52)
[2016-11-25] MEDS: FLUTICASONE PROPIONATE 120 SPRAY/16 GR BOTTLE NS SCH (09:09)
[2016-11-25] MEDS: MONTELUKAST SODIUM 10 MG TABLET PO SCH (09:09)
[2016-11-25] MEDS: predniSONE 10 MG TABLET PO SCH (09:09)
[2016-11-25] MEDS: CARVEDILOL 12.5 MG TABLET PO SCH ×2 (09:09→20:51)
[2016-11-25] MEDS: CHOLECALCIFEROL 1,000 UNIT TABLET PO SCH (09:09)
[2016-11-25] MEDS: HYDROCHLOROTHIAZIDE 25 MG TABLET PO SCH (09:09)
[2016-11-25] MEDS: QUEtiapine FUMARATE 25 MG TABLET PO SCH (20:52)
[2016-11-25] MEDS ORDERED: guaiFENesin/CODEINE PHOS 5ML SYR PO ONE (21:02)
[2016-11-25] MEDS: guaiFENesin/CODEINE PHOS 30ML BOTTLE PO PRN (21:03)
[2016-11-26] MEDS: PANTOPRAZOLE SODIUM 40 MG TABLET PO SCH (05:44)
[2016-11-26] MEDS: CARVEDILOL 12.5 MG TABLET PO SCH ×2 (08:55→20:36)
[2016-11-26] MEDS: LORATADINE 10 MG TABLET PO SCH (08:55)
[2016-11-26] MEDS: DOCUSATE SODIUM 100 MG CAPSULE PO SCH ×2 (08:55→20:35)
[2016-11-26] MEDS: predniSONE 10 MG TABLET PO SCH (08:57)
[2016-11-26] MEDS: APIXABAN 2.5 MG TABLET PO SCH ×2 (08:57→20:35)
[2016-11-26] MEDS: FLUTICASONE PROPIONATE 120 SPRAY/16 GR BOTTLE NS SCH (08:58)
[2016-11-26] MEDS: HYDROCHLOROTHIAZIDE 25 MG TABLET PO SCH (08:58)
[2016-11-26] MEDS: CHOLECALCIFEROL 1,000 UNIT TABLET PO SCH (08:59)
[2016-11-26] MEDS: MONTELUKAST SODIUM 10 MG TABLET PO SCH (08:59)
[2016-11-26] MEDS: QUEtiapine FUMARATE 25 MG TABLET PO SCH (20:36)
[2016-11-26] MEDS ORDERED: guaiFENesin/CODEINE PHOS 5ML SYR PO ONE (20:42)
[2016-11-26] MEDS: guaiFENesin/CODEINE PHOS 30ML BOTTLE PO PRN (20:43)
[2016-11-27] MEDS: PANTOPRAZOLE SODIUM 40 MG TABLET PO SCH (06:21)
[2016-11-27] MEDS: CARVEDILOL 12.5 MG TABLET PO SCH ×2 (08:20→21:27)
[2016-11-27] MEDS: APIXABAN 2.5 MG TABLET PO SCH ×2 (08:21→21:27)
[2016-11-27] MEDS: MONTELUKAST SODIUM 10 MG TABLET PO SCH (08:21)
[2016-11-27] MEDS: HYDROCHLOROTHIAZIDE 25 MG TABLET PO SCH (08:21)
[2016-11-27] MEDS: FLUTICASONE PROPIONATE 120 SPRAY/16 GR BOTTLE NS SCH (08:21)
[2016-11-27] MEDS: LORATADINE 10 MG TABLET PO SCH (08:21)
[2016-11-27] MEDS: predniSONE 10 MG TABLET PO SCH (08:22)
[2016-11-27] MEDS: DOCUSATE SODIUM 100 MG CAPSULE PO SCH ×2 (08:22→21:26)
[2016-11-27] MEDS: CHOLECALCIFEROL 1,000 UNIT TABLET PO SCH (08:22)
[2016-11-27] MEDS ORDERED: SIMETHICONE 80 MG TAB.CHEW PO PRN (11:11)
[2016-11-27] MEDS ORDERED: guaiFENesin/CODEINE PHOS 5ML SYR PO ONE ×2 (21:20→21:23)
[2016-11-27] MEDS: guaiFENesin/CODEINE PHOS 30ML BOTTLE PO PRN (21:28)
[2016-11-27] MEDS: QUEtiapine FUMARATE 25 MG TABLET PO SCH (21:28)
[2016-11-28] MEDS: PANTOPRAZOLE SODIUM 40 MG TABLET PO SCH (06:27)
[2016-11-28] MEDS: FLUTICASONE PROPIONATE 120 SPRAY/16 GR BOTTLE NS SCH (08:48)
[2016-11-28] MEDS: HYDROCHLOROTHIAZIDE 25 MG TABLET PO SCH (08:48)
[2016-11-28] MEDS: CARVEDILOL 12.5 MG TABLET PO SCH ×2 (08:49→20:26)
[2016-11-28] MEDS: APIXABAN 2.5 MG TABLET PO SCH ×2 (08:49→20:26)
[2016-11-28] MEDS: LORATADINE 10 MG TABLET PO SCH (08:49)
[2016-11-28] MEDS: MONTELUKAST SODIUM 10 MG TABLET PO SCH (08:49)
[2016-11-28] MEDS: CHOLECALCIFEROL 1,000 UNIT TABLET PO SCH (08:49)
[2016-11-28] MEDS: DOCUSATE SODIUM 100 MG CAPSULE PO SCH ×2 (08:50→20:26)
[2016-11-28] MEDS: QUEtiapine FUMARATE 25 MG TABLET PO SCH (20:26)
[2016-11-29] MEDS: PANTOPRAZOLE SODIUM 40 MG TABLET PO SCH (05:58)
[2016-11-29] MEDS: FLUTICASONE PROPIONATE 120 SPRAY/16 GR BOTTLE NS SCH (10:14)
[2016-11-29] MEDS: LORATADINE 10 MG TABLET PO SCH ×2 (10:14→10:16)
[2016-11-29] MEDS: MONTELUKAST SODIUM 10 MG TABLET PO SCH (10:15)
[2016-11-29] MEDS: APIXABAN 2.5 MG TABLET PO SCH ×2 (10:15→20:34)
[2016-11-29] MEDS: CHOLECALCIFEROL 1,000 UNIT TABLET PO SCH (10:15)
[2016-11-29] MEDS: HYDROCHLOROTHIAZIDE 25 MG TABLET PO SCH (10:15)
[2016-11-29] MEDS: CARVEDILOL 12.5 MG TABLET PO SCH ×2 (10:16→20:34)
[2016-11-29] MEDS: DOCUSATE SODIUM 100 MG CAPSULE PO SCH ×2 (10:17→20:36)
[2016-11-29] MEDS: QUEtiapine FUMARATE 25 MG TABLET PO SCH (20:34)
[2016-11-30] MEDS: PANTOPRAZOLE SODIUM 40 MG TABLET PO SCH (06:09)
[2016-11-30] MEDS: FLUTICASONE PROPIONATE 120 SPRAY/16 GR BOTTLE NS SCH (09:38)
[2016-11-30] MEDS: HYDROCHLOROTHIAZIDE 25 MG TABLET PO SCH (09:38)
[2016-11-30] MEDS: CHOLECALCIFEROL 1,000 UNIT TABLET PO SCH (09:38)
[2016-11-30] MEDS: DOCUSATE SODIUM 100 MG CAPSULE PO SCH ×2 (09:38→20:23)
[2016-11-30] MEDS: CARVEDILOL 12.5 MG TABLET PO SCH ×2 (09:38→20:23)
[2016-11-30] MEDS: MONTELUKAST SODIUM 10 MG TABLET PO SCH (09:38)
[2016-11-30] MEDS: APIXABAN 2.5 MG TABLET PO SCH ×2 (09:38→20:23)
[2016-11-30] MEDS ORDERED: guaiFENesin/CODEINE PHOS 5ML SYR PO ONE (20:21)
[2016-11-30] MEDS: QUEtiapine FUMARATE 25 MG TABLET PO SCH (20:23)
[2016-12-01] MEDS: PANTOPRAZOLE SODIUM 40 MG TABLET PO SCH (05:59)
[2016-12-01] MEDS: FLUTICASONE PROPIONATE 120 SPRAY/16 GR BOTTLE NS SCH (10:08)
[2016-12-01] MEDS: APIXABAN 2.5 MG TABLET PO SCH ×2 (10:08→20:53)
[2016-12-01] MEDS: CARVEDILOL 12.5 MG TABLET PO SCH ×2 (10:08→20:51)
[2016-12-01] MEDS: LORATADINE 10 MG TABLET PO SCH (10:08)
[2016-12-01] MEDS: HYDROCHLOROTHIAZIDE 25 MG TABLET PO SCH (10:09)
[2016-12-01] MEDS: DOCUSATE SODIUM 100 MG CAPSULE PO SCH ×2 (10:09→20:51)
[2016-12-01] MEDS: CHOLECALCIFEROL 1,000 UNIT TABLET PO SCH (10:09)
[2016-12-01] MEDS: MONTELUKAST SODIUM 10 MG TABLET PO SCH (10:09)
[2016-12-01] MEDS: QUEtiapine FUMARATE 25 MG TABLET PO SCH (20:52)
[2016-12-02] MEDS: PANTOPRAZOLE SODIUM 40 MG TABLET PO SCH (06:31)
--- NOTE | 2016-12-02 08:08 | Discharge Summary ---
Discharge Summary - Discharge Sumary History of Present Illness: Patient was admitted to SNF care after an Acute stay for pneumonia and asthma exacerbation. Patient had gotten debilitated and unable to return home alone so we transitioned her to SNF care. Condition at Discharge: Stable Home Medications: Ambulatory Orders Medication Instructions Recorded Cetirizine HCl [Zyrtec] 10 mg PO D 09/05/14 Cholecalciferol [Vitamin D-3] 1,000 unit PO DAILY 09/05/14 Fluticasone Propionate [Flonase] 1 spray NS D 09/05/14 QUEtiapine FUMARATE [Seroquel] 25 mg PO HS 09/05/14 Consultations this Visit: None Procedures this Visit: None Allergies/Adverse Reactions: Allergies Allergy/AdvReac Type Severity Reaction Status Date / Time penicillin G Allergy Unknown Verified 04/26/12 18:20 Patient Problems: Current Active Problems Problem Status Onset Weakness Acute Discharge Summary: Patient did well during her SNF stay. Strength improved. Breathing improved. Therapy thought she still needed some help so she will come in to outpatient for therapies. F/U in 1 month - will be able to stop blood thinner at that time as it will be 3 months from DVT. Discharged home in good condition. Hospital Course: Discharge Dx: Weakness. Pneumonia. Asthma with acute exacerbation. h/O LLE DVT. H/O colon cancer. Disposition: home
[2016-12-02] MEDS: DOCUSATE SODIUM 100 MG CAPSULE PO SCH (08:41)
[2016-12-02] MEDS: FLUTICASONE PROPIONATE 120 SPRAY/16 GR BOTTLE NS SCH (08:41)
[2016-12-02] MEDS: MONTELUKAST SODIUM 10 MG TABLET PO SCH (08:41)
[2016-12-02] MEDS: CARVEDILOL 12.5 MG TABLET PO SCH (08:41)
[2016-12-02] MEDS: LORATADINE 10 MG TABLET PO SCH (08:41)
[2016-12-02] MEDS: APIXABAN 2.5 MG TABLET PO SCH (08:41)
[2016-12-02] MEDS: CHOLECALCIFEROL 1,000 UNIT TABLET PO SCH (08:42)
[2016-12-02] MEDS: HYDROCHLOROTHIAZIDE 25 MG TABLET PO SCH (08:42)
[2016-12-02 09:55] VITALS: BP 113/81
== END 2016-12-02 09:36 | disposition home or self-care (01) | DRG 947 ==
LOC: SOUTH 09:51
PROVIDERS: ADMIT Family Medicine; ATTEND Family Medicine
DX: R53.1 Weakness (principal); J18.9 Pneumonia, unspecified organism; J45.909 Unspecified asthma, uncomplicated; Z86.718 Personal history of other venous thrombosis and embolism; Z85.038 Personal history of other malignant neoplasm of large intestine
CPT/HCPCS: 97110; 97112; 97116; 97161; 97165; 97530; 97535; A9270; J7512

== ENCOUNTER 2017-03-29 09:44 | Outpatient (CLI) | payer OTHER ==
--- NOTE | 2017-03-29 10:24 | Diagnostic Imaging Report ---
JOSH REYNA [facility] [address] [facility] [address] [address] Report Submission Date: Mar 29, 2017 10:20:40 AM [employer]EDGE MECH[employer]IC Patient Study Name: LEWIS JACK Date: Mar 29, 2017 10:08:16 AM [employer]EDGE MECH[employer]IC Modality Type: CR Gender: F Description: PELVIS : 31 Institution: [facility] Physician: JOSH REYNA Examination: Plain film hip History: Hip discomfort Comparison exams: None provided Findings: 2 views of the hip demonstrates osteopenia. Minimal superior acetabular spurring. No fracture, no dislocation. Vascular calcifications. Impression: Osteopenia and mild degenerative changes. No acute appearing osseous abnormality. Electronically signed on Mar 29, 2017 10:20:40 AM [employer]EDGE MECHANIC by: Alvaro WHARTON
== END 2017-03-29 09:45 ==
LOC: RAD 09:44
PROVIDERS: ATTEND Family Medicine
DX: M25.551 Pain in right hip (principal)
CPT/HCPCS: 73502

== ENCOUNTER 2017-05-30 07:44 | Day surgery (SDC) | payer OTHER ==
--- NOTE | 2017-05-30 14:27 | GI Report ---
REFERRING PHYSICIAN: Dr. Darling Clemente ADVERTISING JOB TITLES: Chavo Zee MD PROCEDURE MEDICATION: Propofol as per anesthesia. INDICATIONS: This is an 82-year-old woman who had colon cancer about 4 years ago. Her last colonoscopy was 3 years ago. She has had some increasing abdominal discomfort and cramps and change in bowel habits. No bleeding. She is referred for the above indications. On exam, she is only 4 feet 11 inches and weighs like 81.8 kilograms and carries that weight centrally. She has got a number of surgical scars. She has a ventral hernia. Heart sounds regular with decreased breath sounds. PROCEDURE PERFORMED: Colonoscopy. PROCEDURE: An Olympus video colonoscope was advanced to the rectum. In the sigmoid, she has significant diverticular disease and a lot of redundancy. It was a slow tedious process to get through the sigmoid colon and finally advanced to the anastomosis of the transverse colon and small bowel. On slow withdrawal, the main part of the transverse colon, descending colon, no obvious intraluminal lesions noted. Significant diverticular disease and redundancy in the sigmoid colon. Retroflexion of the rectum was normal. Patient tolerated the procedure with just a little coughing, otherwise, unremarkable. RECOMMENDATIONS: 1. Would add fiber to her diet like Metamucil or Citrucel. 2. Try to cut back on calories, even a 10 or 15 pound weight loss would be beneficial. 3. She may not need screening surveillance or follow up colonoscopy unless there is a specific event or change in bowel habits or bleeding, so we could make follow up colonoscopy just on a need basis rather than any further surveillance. 4. She is to follow up with Dr. Clemente. cc: Dr. Darling Clemente [facility]
== END 2017-05-30 07:46 ==
LOC: OPSURG 07:44
PROVIDERS: ATTEND Internal Medicine Gastroenterology
DX: R19.4 Change in bowel habit (principal); R10.9 Unspecified abdominal pain; Z85.038 Personal history of other malignant neoplasm of large intestine; K43.9 Ventral hernia without obstruction or gangrene
CPT/HCPCS: 45378; J2001; J2704; J7120; S1016

== ENCOUNTER 2017-07-28 16:28 | Inpatient (IN) | payer OTHER ==
[2017-07-28] MEDS ORDERED: IPRATROPIUM/ALBUTEROL SULFATE 3 ML AMPUL.NEB NEB ONE ×2 (16:58→18:36)
[2017-07-28 17:52] LABS: BASOPHILS % 0.1 (0.0-1.5); EOSINOPHILS % 0.1 % (0.0-6.8); MEAN CORPUSCULAR HEMOGLOBIN 30.8 pg (28.0-34.0); MEAN CORPUSCULAR VOLUME 98.2 fl (80.0-100.0); MONOCYTES % 2.6 % (0.0-11.0); NEUTROPHILS # 3.2 # k/uL (1.4-7.7)
[2017-07-28 17:58] LABS: eGFR (African) > 60; eGFR (Non-African) > 60
--- NOTE | 2017-07-28 18:21 | ED Physician Documentation ---
General Adult - HISTORIAN Historian: patient - HPI Stated Complaint: Shortness of Breath Chief Complaint: General Adult Additional Information: Saw Dr. Clemente 07/24 and started on z pack and prednisone dose pack for bronchitis. Says she is no better. Has nebulizer w/ albuterol at home which she uses 4x/day. Two inhalers and prn oxygen. In patient for pneumonia last November. Today's chest film unchanged from November. HX colon cancer. Pulse ox 88% on arrival in ER. 96% on 2L/NC. Onset: days ago - ROS CONST: denies: fever - PAST HX Past History: other (pneumonia) Allergies/Adverse Reactions: Allergies Allergy/AdvReac Type Severity Reaction Status Date / Time penicillin G Allergy Unknown Verified 04/26/12 18:20 Home Medications: Ambulatory Orders Medication Instructions Recorded Cetirizine HCl [Zyrtec] 10 mg PO D 09/05/14 Cholecalciferol [Vitamin D-3] 1,000 unit PO DAILY 09/05/14 Fluticasone Propionate [Flonase] 1 spray NS D 09/05/14 - SOCIAL HX Smoking History: non-smoker - FAMILY HX Family History: No - VITAL SIGNS Vital Signs: Vital Signs Temp Pulse Resp BP Pulse Ox 99.1 F 74 28 H 179/97 96 07/28/17 16:30 07/28/17 17:30 07/28/17 16:30 07/28/17 16:30 07/28/17 17:30 - REVIEWED ASSESSMENTS Nursing Assessment Reviewed: Yes Vitals Reviewed: Yes Progress - Progress Progress: Patient Study Name: LEWIS JACK Date: Jul 28, 2017 5:47:49 PM CDT Modality Type: DX Gender: F Description: CHEST : 31 Institution: [facility] Physician: MICKY HERNANDEZ - ER Examination: PA and lateral chest. History: Evaluate lung jefferson. CXR, SOA X1 WEEK, WORSENING (Hx) Comparison exam: 12 November 2016 Findings: PA lateral chest demonstrates a prominent cardiac silhouette. Tortuous aorta. Elevated right hemidiaphragm. Continued fullness involving the right hilar region. Chronic interstitial changes. Articular degenerative changes and right humeral fixation hardware. Impression: Continued interstitial fullness and right hilar infiltrate. No definite effusion. Electronically signed on Jul 28, 2017 6:08:12 PM CDT by: Alvaro May Stevenson a little better after Duoneb, but didn't last. 1830, discussed with Dr. Rodriguez. will admit inpatient to Dr. Rodriguez ED Results Lab/Radiology - Lab Results Lab Results: Lab Results 07/28/17 07/28/17 07/28/17 16:58 16:58 16:58 WBC 3.90 K/ul L K/ul (4.00-12.00) RBC 3.88 M/ul L M/ul (3.90-5.20) Hgb 11.9 g/dL L g/dL (12.0-16.0) Hct 38.1 % % (34.5-46.5) MCV 98.2 fl fl (80.0-100.0) MCH 30.8 pg pg (28.0-34.0) MCHC 31.4 g/dL g/dL (30.0-36.0) RDW 12.8 % % (11.3-14.3) Plt Count 208 K/mm3 K/mm3 (130-400) Neut % (Auto) 82.5 % H % (39.0-79.0) Lymph % (Auto) 13.9 % L % (16.0-50.0) [place] % (Auto) 2.6 % % (0.0-11.0) Eos % (Auto) 0.1 % % (0.0-6.8) Baso % (Auto) 0.1 (0.0-1.5) Neut # (Auto) 3.2 # k/uL # k/uL (1.4-7.7) Lymph # (Auto) 0.6 # k/uL # k/uL (0.6-4.0) [place] # (Auto) 0.1 # k/uL # k/uL (0.0-0.9) Eos # (Auto) 0.0 # k/uL # k/uL (0.0-0.6) Baso # (Auto) 0.0 # k/uL # k/uL (0.0-0.5) Reactive Lymphs % 0.8 % % (0.0-5.0) Reactive Lymphs # 0.0 # k/uL # k/uL (0.0-0.8) Sodium 143 mmol/L mmol/L (136-145) Potassium 4.6 mmol/L mmol/L (3.5-5.1) Chloride 104 mmol/L mmol/L (98-107) Carbon Dioxide 28 mmol/L mmol/L (22-30) BUN 26 mg/dL H mg/dL (7-17) Creatinine 0.80 mg/dL mg/dL (0.52-1.04) Estimated Creat Clear 97 Est GFR ( Amer) > 60 (60 - ) Est GFR (Non-Af Amer) > 60 (60 - ) Glucose 141 mg/dL H mg/dL (74-106) Calcium 10.5 mg/dL H mg/dL (8.4-10.2) Total Bilirubin 0.7 mg/dL mg/dL (0.2-1.3) AST 18 U/L U/L (15-46) ALT 15 U/L U/L (13-69) Alkaline Phosphatase 60 U/L U/L (38-126) Creatine Kinase 23 U/L L U/L (30-135) Troponin I < 0.03 ng/mL L ng/mL (0.03-0.06) Total Protein 6.8 g/dL g/dL (6.3-8.2) Albumin 3.9 g/dL g/dL (3.5-5.0) - Orders Orders: ED Orders Category Date Time Status Continuous EKG monitoring Q30M Care 07/28/17 16:58 Active Continuous Pulse Oximetry Q30M Care 07/28/17 16:[address] IV Lock 1T Care 07/28/17 16:58 Active CHEST 2VIEW [RAD] Stat Exams 07/28/17 16:57 Ordered BLOOD CULTURE Stat Lab 07/28/17 16:57 Ordered CBC/PLATELET/DIFF Routine Lab 07/28/17 16:58 Completed CMP Routine Lab 07/28/17 16:58 Completed CREATINE KINASE Routine Lab 07/28/17 16:58 Completed TROPONIN I (cTnI) Stat Lab 07/28/17 16:58 Completed Ipratropium/Albuterol Sulfate [Duoneb] Med 07/28/17 16:58 Discontinued 3 ml NEB NOW ONE Oxygen Daily Oxygen 07/28/17 17:00 Ordered EKG WITH COMPARISON Stat Ther 07/28/17 16:58 Ordered General Adult Physical Exam - PHYSICAL EXAM GENERAL APPEARANCE: obese EENT: eye inspection normal, ENT inspection normal, pharynx normal NECK: normal inspection, supple RESPIRATORY: other (coarse throughout with fine wheezes) CVS: reg rate & rhythm, heart sounds normal ABDOMEN: soft, normal bowel sounds BACK: normal inspection, no CVA tenderness (no vertebral tenderness) SKIN: warm/dry, normal color EXTREMITIES: no evidence of injury NEURO: CN's nml as tested, motor nml, sensation nml, cognition normal Discharge Clincal Impression: Pulmonary infiltrate in right lung on chest x-ray Condition: Fair Disposition: ADMITTED INPATIENT Decision to Admit: [id number] Decision Time: 18:30
--- NOTE | 2017-07-28 18:29 | Diagnostic Imaging Report ---
MICKY HERNANDEZ [facility] [address] [facility] [address] [address] Report Submission Date: Jul 28, 2017 6:08:12 PM CDT Patient Study Name: LEWIS JACK Date: Jul 28, 2017 5:47:49 PM CDT Modality Type: DX Gender: F Description: CHEST : 31 Institution: [facility] Physician: MICKY HERNANDEZ Examination: PA and lateral chest. History: Evaluate lung jefferson. CXR, SOA X1 WEEK, WORSENING (Hx) Comparison exam: 12 November 2016 Findings: PA lateral chest demonstrates a prominent cardiac silhouette. Tortuous aorta. Elevated right hemidiaphragm. Continued fullness involving the right hilar region. Chronic interstitial changes. Articular degenerative changes and right humeral fixation hardware. Impression: Continued interstitial fullness and right hilar infiltrate. No definite effusion. Electronically signed on Jul 28, 2017 6:08:12 PM CDT by: Alvaro WHARTON
[2017-07-28 18:39] LABS: APPEARANCE,URINE CLOUDY (CLEAR); COLOR,URINE YELLOW (YELLOW); OCCULT BLOOD,URINE NEGATIVE (NEGATIVE); UROBILINOGEN URINE 0.2 Eu (0.2-1.0)
[2017-07-28 19:19] VITALS: BMI 38.4
[2017-07-28] MEDS ORDERED: TIZANIDINE HCL 2 MG PO SCH (20:12)
[2017-07-28] MEDS ORDERED: ALBUTEROL SULFATE IH SCH (20:12)
[2017-07-28] MEDS: CARVEDILOL 12.5 MG TABLET PO SCH (20:29)
[2017-07-28] MEDS: FLOVENT IH SCH (20:47)
[2017-07-28] MEDS ORDERED: MELATONIN 3 MG TABLET PO SCH (21:00)
[2017-07-29] MEDS ORDERED: IPRATROPIUM/ALBUTEROL SULFATE 3 ML AMPUL.NEB NEB ONE (08:41)
[2017-07-29] MEDS: FLUTICASONE PROPIONATE 120 SPRAY/16 GR BOTTLE NS SCH (08:47)
[2017-07-29] MEDS: CARVEDILOL 12.5 MG TABLET PO SCH ×2 (08:48→20:51)
[2017-07-29] MEDS: CHOLECALCIFEROL (VIT D3) 1,000 UNIT TABLET PO SCH (08:49)
[2017-07-29] MEDS: HYDROCHLOROTHIAZIDE 25 MG TABLET PO SCH (08:49)
[2017-07-29] MEDS: OMEPRAZOLE 20 MG CAPSULE.DR PO SCH (08:49)
[2017-07-29] MEDS: MONTELUKAST SODIUM 10 MG TABLET PO SCH (08:49)
[2017-07-29] MEDS: FLOVENT IH SCH (08:51)
[2017-07-29] MEDS ORDERED: CETIRIZINE HCL 10 MG PO SCH (09:00)
[2017-07-29] MEDS: IPRATROPIUM/ALBUTEROL SULFATE 3 ML AMPUL.NEB NEB SCH ×4 (09:00→20:52)
[2017-07-29] MEDS ORDERED: methylPREDNISolone SOD SUCC 125 MG/2 ML VIAL IVP ONE (09:42)
--- NOTE | 2017-07-29 09:43 | History and Physical Report ---
History of Present Illnes - History of Present Illness Reason for Visit: dyspnea History of Present Illness: 82-year-old white female who has a history of COPD and asthma. Patient states approximately 5 to 6 days ago she start having some increasing shortness of breath dyspnea. Patient was having a lot of wheezing. Patient was using inhalers much more than her baseline. Patient does wear oxygen and not had to start using it during the day in order to keep yourself comfortable. Patient was seen by Dr. Clemente four days ago and was started on steroids and azithromycin. Patient stated initially got some better but then over the last 24 to 36 hours her breathing started to become worse. Patient does have increasing dyspnea and shortness of breath even with the supplemental oxygen. Patient subsequently came to the emergency room for evaluation. Patient was felt to have some hilar infiltrate related to possible pneumonia. Patient was subsequently admitted to the hospital for further care and evaluation. - Past Medical History Cardiac: HTN, Valve insufficiency (mitral reguritation) Pulmonary: Asthma, COPD Gastrointestinal: GERD, Other (Colon cancer 2012 - T2N0M0) Heme/Onc: Anemia NOS Psych: Anxiety Infectious Disease: Other (h/o C diff 2012) Endocrine: Osteoporosis - Past Surgical History Past Surgical History: Appendectomy, Cholecystectomy, Cataract Removal, Hysterectomy, Total Knee Replacement, Other (Right hemicolectomy for necrotic appendix (08/14) followed by further colonic resection in 01/14 due to colon cancer. Decortication of right sided empyema) - Past Family History Mother Family History: CAD, DM, (78) Father Family History: (73 - liver disease) Sister 1 Family History: CAD - Past Social History Smoke: No Alcohol: None Drugs: None Lives: Alone ( a year ago.) Domestic Violence: Negative - Health Maintenance Health Maintenance: Influenza Vaccine, Pneumococcal Vaccine (02/12/15 Pneumo 13 ; 11/23/12 Pneumo 23), Mammogram, Colonoscopy (05/22 - negative), DEXA Influenza Vaccine: Current for this Influenza Season Pneumonia Vaccine: Yes Resuscitation Status: Resusciation Status Resuscitation Status Full Code - Unable to Obtain History Unable to Obtain: Yes Review of Systems - Review of Systems Constitutional: Weakness. negative: Fever, Chills Eyes: negative: pain, redness ENT: Other (decrease hearing acuity). negative: Ear Pain, Ear Discharge, Nose Pain, Nose Discharge, Nose Congestion, Mouth Pain, Throat Pain Respiratory: Cough, Dry, Shortness of Breath, SOB with Excertion, Wheezing. negative: Hemoptysis, Pleuritic Pain Cardiovascular: negative: Chest Pain, Palpitations, Orthopnea Gastrointestinal: Other (abd wall hernia). negative: Nausea, Vomiting, Abdominal Pain, Diarrhea, Constipation, Melena, Hematochezia Genitourinary: negative: Dysuria, Frequency Musculoskeletal: negative: Neck Pain, Back Pain Skin: negative: Rash Neurological: Weakness. negative: Numbness, Incoordination, Change in Speech, Confusion, Seizures - Medications/Allergies Allergies/Adverse Reactions: Allergies Allergy/AdvReac Type Severity Reaction Status Date / Time penicillin G Allergy Unknown Verified 04/26/12 18:20 Current Inpatient Medications: Current Inpatient Medications Albuterol/Ipratropium (Duoneb) 3 ml NEB QID [facility] Carvedilol (Coreg) 12.5 mg PO BID [facility] Last Admin: 07/29/17 08:48 Dose: 12.5 mg Cholecalciferol (Vitamin D-3) 1,000 unit PO DAILY [facility] Last Admin: 07/29/17 08:49 Dose: 1,000 unit Fluticasone Propionate (Flonase Nasal [place]) 1 spray NS D [facility] Last Admin: 07/29/17 08:47 Dose: 1 spr Hydrochlorothiazide (Hydrodiuril) 25 mg PO DAILY [facility] Last Admin: 07/29/17 08:49 Dose: 25 mg Azithromycin 500 mg/ Sodium (Chloride) 250 mls @ 125 mls/hr IV Q24H [facility] Stop: 08/03/17 09:59 Levofloxacin (Levaquin) 500 mg PO DAILY [facility] Melatonin (Melatonin) 10 mg PO HS [facility] Last Admin: 07/28/17 20:40 Dose: 10 mg Montelukast Sodium (Singulair) 10 mg PO DAILY [facility] Last Admin: 07/29/17 08:49 Dose: 10 mg Omeprazole (Omeprazole) 20 mg PO DAILY [facility] Last Admin: 07/29/17 08:49 Dose: 20 mg Exam - Exam Vital Signs: Vital Signs (72 hours) 07/28/17 07/28/17 07/28/17 18:52 19:09 21:58 Temperature 99.1 F 97.5 F L 97.7 F Pulse Rate [ 60 63 65 Pulse ox] Respiratory 26 H 18 18 Rate Blood Pressure 154/73 163/95 145/51 [Right Arm] O2 Sat by Pulse 96 96 96 Oximetry 07/29/17 07/29/17 02:00 05:57 Temperature 97.6 F 97.3 F L Pulse Rate [ 66 102 H Pulse ox] Respiratory 22 22 Rate Blood Pressure 147/67 143/91 [Right Arm] O2 Sat by Pulse 93 94 Oximetry General: Alert, Oriented to Person, Oriented to Place, Oriented to Time, Cooperative HEENT: Atraumatic, PERRLA, Mouth Mucous membr. moist/[place], Dentition Normal, Decreased Hearing Acuity Neck: Normal Range of Motion. No: Stridor, Rigidity, Lymphadenopathy Carotids: WNL Thyroid: WNL Lungs: Normal air movement, Speaks full Sentences, Respiratory Distress (mild), Wheezes (bilateral exspiratory) Cardiovascular: Regular rate, Normal S1, Normal S2, No murmurs. No: Gallops Abdomen: Normal bowel sounds, Soft, No tenderness, No masses, Vental Hernia ( large). No: Distended Integumentary: Normal, [place], Warm, Dry Extremities: No clubbing, No cyanosis, No edema Neurological: Normal gait, Normal speech, Strength Equal Bilat, Normal tone, Sensation intact, Cranial nerves 3-12 NL, Reflexes 2+ Psych/Mental Status: Mental status NL, Mood NL, Appropriate Affect, Intact Judgment Assessment/Plan - Assessment/Plan (1) Pneumonia Status: Acute Current Visit: No Qualifiers: Pneumonia type: due to unspecified organism Laterality: right Lung location: middle lobe of lung Qualified Code(s): J18.1 - Lobar pneumonia, unspecified organism Assessment: blood cultures pending, will start levaquin and azithromycin (2) Asthma with acute exacerbation Status: Acute Current Visit: No Qualifiers: Asthma severity: moderate persistent Assessment: Will start IV steriods and HFN treatments with duoneb. Continue with supplemental oxygenation. (3) GERD (gastroesophageal reflux disease) Status: Chronic Current Visit: No Assessment: continue with home meds (4) Hypertension Status: Chronic Current Visit: No Assessment: continue with home meds VTE Assessment - RISK FACTOR SCORE VTE RISK FACTOR SCORES: AGE OVER 60 YEARS, ACUTE RESPIRATORY FAILURE/SEVERE COPD , ANTICIPATED BED CONFINEMENT OR IMMOBILIZATION > 24 HOURS - RISK VTE HIGH RISK: SCORE OF 3-4 (RISK PROXIMAL DVT 4-8%) PROPHYLAXIS NEEDED
[2017-07-29] MEDS ORDERED: LEVOFLOXACIN 500MG/D5W 100ML 100 ML IV ONE (09:52)
[2017-07-29] MEDS ORDERED: MONTELUKAST SODIUM 10 MG TABLET PO SCH (10:00)
[2017-07-29] MEDS ORDERED: ACETAMINOPHEN 500 MG TABLET PO PRN (10:07)
[2017-07-29] MEDS ORDERED: guaiFENesin DM 100 MG/10 MG/5 ML 118ML BOTTLE PO PRN (10:07)
[2017-07-29] MEDS: LEVOFLOXACIN 500MG/D5W 100ML 500 MG in PREMIX BAG 1 BAG IV SCH ×2 (10:20→10:37)
[2017-07-29] MEDS ORDERED: cefTRIAXone SODIUM 1 GM VIAL ONE (10:50)
[2017-07-29] MEDS ORDERED: 0.9 % SODIUM CHLORIDE 1,000 ML IV SCH (11:00)
[2017-07-29] MEDS: ENOXAPARIN SODIUM 30 MG/0.3 ML DISP.SYRIN SQ SCH (12:42)
[2017-07-29] MEDS: cefTRIAXone SODIUM 1 GM in 0.9 % SODIUM CHLORIDE 50 ML IV SCH (13:42)
[2017-07-29] MEDS: AZITHROMYCIN 500 MG in 0.9 % SODIUM CHLORIDE 250 ML IV SCH (13:43)
[2017-07-29] MEDS: guaiFENesin DM 100 MG/10 MG/5 ML 118ML BOTTLE PO PRN ×2 (13:51→18:17)
--- NOTE | 2017-07-29 19:03 | Diagnostic Imaging Report ---
[place]/MED SURG [facility] [address] [facility].[address] [address] Report Submission Date: Jul 29, 2017 1:53:23 PM CDT Patient Study Name: LEWIS JACK Date: Jul 29, 2017 11:28:57 AM CDT Modality Type: CT\SR Gender: F Description: CT CHEST W/ CONTRAST : 31 Institution: [facility] Physician: [facility]/MED SURG Examination: CT chest History: CT CHEST W/ CONTRAST, PERSISTENT PERIHILAR INFILTRATES, COUGH (Hx) Comparison exams: Plain film chest dated 28 July 2017 Technique: CT chest with contrast protocol Findings: Lungs demonstrate emphysematous changes. Diffuse interstitial thickening and scarring. No suspicious nodule or spiculated lesion. Posterior pleural thickening. No effusion. Anterior mediastinum and yifan are without gross mass or pathologic adenopathy. Thoracic aorta demonstrates peripheral atherosclerotic disease and mural thickening. Cardiac silhouette prominent. No pericardial effusion. Lower neck structures are without gross abnormality. Thoracic spine degenerative changes. Hiatal hernia. Anterior abdominal wall hernia. Bilateral renal cysts. Right hepatic lobe cyst. Impression: Emphysematous changes and chronic interstitial scarring. Correlate with any underlying pulmonary process. Cardiomegaly. Hiatal hernia. Anterior abdominal wall hernia - not fully evaluated. Electronically signed on Jul 29, 2017 1:53:23 PM CDT by: Alvaro WHARTON
[2017-07-29] MEDS: MELATONIN 3 MG TABLET PO SCH (20:50)
[2017-07-30] MEDS: guaiFENesin DM 100 MG/10 MG/5 ML 118ML BOTTLE PO PRN ×2 (08:49→21:35)
[2017-07-30] MEDS: OMEPRAZOLE 20 MG CAPSULE.DR PO SCH (08:49)
[2017-07-30] MEDS: FLUTICASONE PROPIONATE 120 SPRAY/16 GR BOTTLE NS SCH (08:49)
[2017-07-30] MEDS: HYDROCHLOROTHIAZIDE 25 MG TABLET PO SCH (08:49)
[2017-07-30] MEDS: CARVEDILOL 12.5 MG TABLET PO SCH ×2 (08:49→20:35)
[2017-07-30] MEDS: CHOLECALCIFEROL (VIT D3) 1,000 UNIT TABLET PO SCH (08:51)
[2017-07-30] MEDS ORDERED: LEVOFLOXACIN 500 MG TABLET PO SCH (09:00)
[2017-07-30] MEDS: MONTELUKAST SODIUM 10 MG TABLET PO SCH (09:18)
--- NOTE | 2017-07-30 09:25 | Inpatient Progress Note ---
Subjective - Required Recertification Statement I anticipate X number of days because-include discharge plan: 2 days - Review of Systems Events since last encounter: CT scan shows chronic interstitial changes. Subjective: Patient states that her breathing is about the same. It may be slightly better. Continues to have a cough that is productive of green phlegm. No blood noted. General: Denies: Chills Pulmonary: Cough. Denies: Pleuritic Chest Pain Cardiovascular: Denies: Chest Pain, Palpitations, Orthopnea Gastrointestinal: Denies: Nausea, Vomiting Genitourinary: Denies: Dysuria, Frequency Objective - Exam Vitals and I&O: Vital Signs Temp 97.6 F 07/30/17 06:00 Pulse 102 H 07/30/17 06:00 Resp 18 07/30/17 06:00 BP 128/88 07/30/17 06:00 Pulse Ox 96 07/30/17 06:00 Intake & Output 07/29/17 07/29/17 07/30/17 11:59 23:59 11:59 Intake Total 460 2320 700 Balance 460 2320 700 Intake: IV 890 340 Left Antecubital 160 Right Antecubital 730 340 Oral 460 1430 360 Other: Voiding Method Toilet Toilet # Voids 3 2 1 General: Alert, Oriented to Person, Oriented to Place, Oriented to Time, Mild distress Neck: Supple, No JVD Lungs: Normal air movement, Speaks full Sentences, Wheezes (with forced expiration, sound better then yesterday). No: Rales, Rhonchi, Chest Wall Tenderness Cardiovascular: Regular rate, Normal S1, Normal S2, No murmurs Abdomen: Normal bowel sounds, Soft, No tenderness - Results Results: Laboratory Results WBC 3.90 K/ul (4.00-12.00) L 07/28/17 16:58 RBC 3.88 M/ul (3.90-5.20) L 07/28/17 16:58 Hgb 11.9 g/dL (12.0-16.0) L 07/28/17 16:58 Hct 38.1 % (34.5-46.5) 07/28/17 16:58 MCV 98.2 fl (80.0-100.0) 07/28/17 16:58 MCH 30.8 pg (28.0-34.0) 07/28/17 16:58 MCHC 31.4 g/dL (30.0-36.0) 07/28/17 16:58 RDW 12.8 % (11.3-14.3) 07/28/17 16:58 Plt Count 208 K/mm3 (130-400) 07/28/17 16:58 Neut % (Auto) 82.5 % (39.0-79.0) H 07/28/17 16:58 Lymph % (Auto) 13.9 % (16.0-50.0) L 07/28/17 16:58 [place] % (Auto) 2.6 % (0.0-11.0) 07/28/17 16:58 Eos % (Auto) 0.1 % (0.0-6.8) 07/28/17 16:58 Baso % (Auto) 0.1 (0.0-1.5) 07/28/17 16:58 Neut # (Auto) 3.2 # k/uL (1.4-7.7) 07/28/17 16:58 Lymph # (Auto) 0.6 # k/uL (0.6-4.0) 07/28/17 16:58 [place] # (Auto) 0.1 # k/uL (0.0-0.9) 07/28/17 16:58 Eos # (Auto) 0.0 # k/uL (0.0-0.6) 07/28/17 16:58 Baso # (Auto) 0.0 # k/uL (0.0-0.5) 07/28/17 16:58 Reactive Lymphs % 0.8 % (0.0-5.0) 07/28/17 16:58 Reactive Lymphs # 0.0 # k/uL (0.0-0.8) 07/28/17 16:58 Sodium 143 mmol/L (136-145) 07/28/17 16:58 Potassium 4.6 mmol/L (3.5-5.1) 07/28/17 16:58 Chloride 104 mmol/L (98-107) 07/28/17 16:58 Carbon Dioxide 28 mmol/L (22-30) 07/28/17 16:58 BUN 26 mg/dL (7-17) H 07/28/17 16:58 Creatinine 0.80 mg/dL (0.52-1.04) 07/28/17 16:58 Estimated Creat Clear 97 04 16:58 Est GFR ( Amer) > 60 (60-) 07/28/17 16:58 Est GFR (Non-Af Amer) > 60 (60-) 07/28/17 16:58 Glucose 141 mg/dL (74-106) H 07/28/17 16:58 Calcium 10.5 mg/dL (8.4-10.2) H 07/28/17 16:58 Total Bilirubin 0.7 mg/dL (0.2-1.3) 07/28/17 16:58 AST 18 U/L (15-46) 07/28/17 16:58 ALT 15 U/L (13-69) 07/28/17 16:58 Alkaline Phosphatase 60 U/L (38-126) 07/28/17 16:58 Creatine Kinase 23 U/L (30-135) L 07/28/17 16:58 Troponin I < 0.03 ng/mL (0.03-0.06) L 07/28/17 16:58 Total Protein 6.8 g/dL (6.3-8.2) 07/28/17 16:58 Albumin 3.9 g/dL (3.5-5.0) 07/28/17 16:58 Urine Color Yellow (YELLOW) 07/28/17 18:00 Urine Appearance Cloudy (CLEAR) H 07/28/17 18:00 Urine pH 5.0 (5.0 - 8.0) 07/28/17 18:00 Ur Specific [place] 1.015 (1.010-1.030) 07/28/17 18:00 Urine Protein Negative mg/dL (NEGATIVE) 07/28/17 18:00 Urine Ketones Negative mg/dL (NEGATIVE) 07/28/17 18:00 Urine Occult Blood Negative (NEGATIVE) 07/28/17 18:00 Urine Nitrite Negative (NEGATIVE) 07/28/17 18:00 Urine Bilirubin Negative (NEGATIVE) 07/28/17 18:00 Urine Urobilinogen 0.2 Eu (0.2-1.0) 07/28/17 18:00 Ur Leukocyte Esterase 1+ (NEGATIVE) H 07/28/17 18:00 Urine Glucose Negative mg/dL (NEGATIVE) 07/28/17 18:00 Assessment/Plan - Assessment/Plan (1) Pneumonia Status: Acute Current Visit: No Qualifiers: Pneumonia type: due to unspecified organism Laterality: right Lung location: middle lobe of lung Qualified Code(s): J18.1 - Lobar pneumonia, unspecified organism (2) Asthma with acute exacerbation Status: Acute Current Visit: No Qualifiers: Asthma severity: moderate persistent Assessment: will continue with IV solumedrol and HFN treatments, continue with supplemental oxygen, encourage to ambulate. (3) GERD (gastroesophageal reflux disease) Status: Chronic Current Visit: No Assessment: stable (4) Hypertension Status: Chronic Current Visit: No Assessment: stable
[2017-07-30] MEDS: IPRATROPIUM/ALBUTEROL SULFATE 3 ML AMPUL.NEB NEB SCH ×4 (09:30→20:41)
[2017-07-30] MEDS: AZITHROMYCIN 500 MG in 0.9 % SODIUM CHLORIDE 250 ML IV SCH (11:19)
[2017-07-30] MEDS: ENOXAPARIN SODIUM 30 MG/0.3 ML DISP.SYRIN SQ SCH (12:26)
[2017-07-30] MEDS ORDERED: cefTRIAXone SODIUM 1 GM VIAL ONE (12:26)
[2017-07-30] MEDS: cefTRIAXone SODIUM 1 GM in 0.9 % SODIUM CHLORIDE 50 ML IV SCH (12:26)
[2017-07-30] MEDS ORDERED: methylPREDNISolone SOD SUCC 40 MG/ML VIAL ONE (13:01)
[2017-07-30] MEDS: methylPREDNISolone SOD SUCC 40 MG/ML VIAL IVP SCH (20:35)
[2017-07-30] MEDS: MELATONIN 3 MG TABLET PO SCH (21:34)
[2017-07-31] MEDS ORDERED: methylPREDNISolone SOD SUCC 40 MG/ML VIAL ONE ×2 (01:13→14:32)
[2017-07-31] MEDS: OMEPRAZOLE 20 MG CAPSULE.DR PO SCH (05:58)
[2017-07-31 07:07] LABS: BASOPHILS % 0.1 (0.0-1.5); EOSINOPHILS % 1.7 % (0.0-6.8); MEAN CORPUSCULAR HEMOGLOBIN 30.4 pg (28.0-34.0); MONOCYTES % 1.8 % (0.0-11.0); NEUTROPHILS # 3.5 # k/uL (1.4-7.7)
[2017-07-31 07:21] LABS: eGFR (African) > 60; eGFR (Non-African) > 60
[2017-07-31] MEDS ORDERED: 0.9 % SODIUM CHLORIDE 250 ML IV ONE (09:00)
[2017-07-31] MEDS ORDERED: AZITHROMYCIN 500 MG VIAL IV ONE (09:01)
[2017-07-31] MEDS: methylPREDNISolone SOD SUCC 40 MG/ML VIAL IVP SCH ×2 (09:17→21:15)
[2017-07-31] MEDS: AZITHROMYCIN 500 MG in 0.9 % SODIUM CHLORIDE 250 ML IV SCH (09:25)
[2017-07-31] MEDS: FLUTICASONE PROPIONATE 120 SPRAY/16 GR BOTTLE NS SCH (09:26)
[2017-07-31] MEDS: CARVEDILOL 12.5 MG TABLET PO SCH ×2 (09:26→21:16)
[2017-07-31] MEDS: HYDROCHLOROTHIAZIDE 25 MG TABLET PO SCH (09:27)
[2017-07-31] MEDS: CHOLECALCIFEROL (VIT D3) 1,000 UNIT TABLET PO SCH (09:27)
[2017-07-31] MEDS: MONTELUKAST SODIUM 10 MG TABLET PO SCH (09:27)
[2017-07-31] MEDS: IPRATROPIUM/ALBUTEROL SULFATE 3 ML AMPUL.NEB NEB SCH ×4 (09:46→21:18)
[2017-07-31] MEDS ORDERED: cefTRIAXone SODIUM 1 GM VIAL ONE (11:06)
[2017-07-31] MEDS ORDERED: 0.9 % SODIUM CHLORIDE 0 ML IV ONE (11:08)
[2017-07-31] MEDS ORDERED: 0.9 % SODIUM CHLORIDE 100 ML IV ONE (11:12)
[2017-07-31] MEDS: cefTRIAXone SODIUM 1 GM in 0.9 % SODIUM CHLORIDE 50 ML IV SCH (11:44)
[2017-07-31] MEDS ORDERED: MAGNESIUM HYDROXIDE 400 MG/5 ML 30ML UDC PO PRN (12:36)
--- NOTE | 2017-07-31 12:41 | Inpatient Progress Note ---
Subjective - Required Recertification Statement I anticipate X number of days because-include discharge plan: 1 day - Review of Systems Events since last encounter: Patient states that she is some better. Still having a cough but improved. Is ambulationg in the halls some. Still having some wheezing. Subjective: Patient states that her breathing is about the same. It may be slightly better. Continues to have a cough that is productive of green phlegm. No blood noted. General: Denies: Night Sweats, Fatigue Pulmonary: Dyspnea (mild), Cough. Denies: Pleuritic Chest Pain Cardiovascular: Denies: Chest Pain Gastrointestinal: Constipation. Denies: Nausea, Vomiting, Abdominal Pain Genitourinary: Denies: Dysuria, Frequency Objective - Exam Vitals and I&O: Vital Signs Temp 97.4 F L 07/31/17 09:26 Pulse 107 H 07/31/17 09:26 Resp 18 07/31/17 09:26 BP 147/90 07/31/17 09:26 Pulse Ox 97 07/31/17 09:26 Intake & Output 07/30/17 07/31/17 07/31/17 23:59 11:59 23:59 Intake Total 1080 660 Balance 1080 660 Intake: Oral 1080 660 Other: Voiding Method Toilet Toilet # Voids 1 1 General: Alert, Oriented to Person, Oriented to Place, Oriented to Time, Cooperative, No acute distress Lungs: Normal air movement, Speaks full Sentences, Respiratory Distress (mild), Wheezes (expiratory). No: Rales, Rhonchi Cardiovascular: Regular rate, Normal S1, Normal S2, No murmurs Abdomen: Normal bowel sounds, Soft, No tenderness, No hepatospenomegaly, No masses Skin: Normal, [place], Warm, Dry - Results Results: Laboratory Results WBC 4.40 K/ul (4.00-12.00) 07/31/17 07:00 RBC 4.01 M/ul (3.90-5.20) 07/31/17 07:00 Hgb 12.2 g/dL (12.0-16.0) 07/31/17 07:00 Hct 38.4 % (34.5-46.5) 07/31/17 07:00 MCV 96.0 fl (80.0-100.0) 07/31/17 07:00 MCH 30.4 pg (28.0-34.0) 07/31/17 07:00 MCHC 31.7 g/dL (30.0-36.0) 07/31/17 07:00 RDW 12.9 % (11.3-14.3) 07/31/17 07:00 Plt Count 219 K/mm3 (130-400) 07/31/17 07:00 Neut % (Auto) 81.2 % (39.0-79.0) H 07/31/17 07:00 Lymph % (Auto) 15.0 % (16.0-50.0) L 07/31/17 07:00 [place] % (Auto) 1.8 % (0.0-11.0) 07/31/17 07:00 Eos % (Auto) 1.7 % (0.0-6.8) 07/31/17 07:00 Baso % (Auto) 0.1 (0.0-1.5) 07/31/17 07:00 Neut # (Auto) 3.5 # k/uL (1.4-7.7) 07/31/17 07:00 Lymph # (Auto) 0.6 # k/uL (0.6-4.0) 07/31/17 07:00 [place] # (Auto) 0.1 # k/uL (0.0-0.9) 07/31/17 07:00 Eos # (Auto) 0.1 # k/uL (0.0-0.6) 07/31/17 07:00 Baso # (Auto) 0.0 # k/uL (0.0-0.5) 07/31/17 07:00 Reactive Lymphs % 0.2 % (0.0-5.0) 07/31/17 07:00 Reactive Lymphs # 0.0 # k/uL (0.0-0.8) 07/31/17 07:00 Sodium 144 mmol/L (136-145) 07/31/17 07:00 Potassium 4.4 mmol/L (3.5-5.1) 07/31/17 07:00 Chloride 104 mmol/L (98-107) 07/31/17 07:00 Carbon Dioxide 29 mmol/L (22-30) 07/31/17 07:00 BUN 24 mg/dL (7-17) H 07/31/17 07:00 Creatinine 0.80 mg/dL (0.52-1.04) 07/31/17 07:00 Estimated Creat Clear 81 07/31/17 07:00 Est GFR ( Amer) > 60 (60-) 07/31/17 07:00 Est GFR (Non-Af Amer) > 60 (60-) 07/31/17 07:00 Glucose 148 mg/dL (74-106) H 07/31/17 07:00 Calcium 10.0 mg/dL (8.4-10.2) 07/31/17 07:00 Total Bilirubin 0.6 mg/dL (0.2-1.3) 07/31/17 07:00 AST 20 U/L (15-46) 07/31/17 07:00 ALT 20 U/L (13-69) 07/31/17 07:00 Alkaline Phosphatase 62 U/L (38-126) 07/31/17 07:00 Creatine Kinase 23 U/L (30-135) L 07/28/17 16:58 Troponin I < 0.03 ng/mL (0.03-0.06) L 07/28/17 16:58 Total Protein 6.7 g/dL (6.3-8.2) 07/31/17 07:00 Albumin 3.7 g/dL (3.5-5.0) 07/31/17 07:00 Urine Color Yellow (YELLOW) 07/28/17 18:00 Urine Appearance Cloudy (CLEAR) H 07/28/17 18:00 Urine pH 5.0 (5.0 - 8.0) 07/28/17 18:00 Ur Specific [place] 1.015 (1.010-1.030) 07/28/17 18:00 Urine Protein Negative mg/dL (NEGATIVE) 07/28/17 18:00 Urine Ketones Negative mg/dL (NEGATIVE) 07/28/17 18:00 Urine Occult Blood Negative (NEGATIVE) 07/28/17 18:00 Urine Nitrite Negative (NEGATIVE) 07/28/17 18:00 Urine Bilirubin Negative (NEGATIVE) 07/28/17 18:00 Urine Urobilinogen 0.2 Eu (0.2-1.0) 07/28/17 18:00 Ur Leukocyte Esterase 1+ (NEGATIVE) H 07/28/17 18:00 Urine Glucose Negative mg/dL (NEGATIVE) 07/28/17 18:00 Assessment/Plan - Assessment/Plan (1) Pneumonia Status: Acute Current Visit: No Qualifiers: Pneumonia type: due to unspecified organism Laterality: right Lung location: middle lobe of lung Qualified Code(s): J18.1 - Lobar pneumonia, unspecified organism Assessment: i claudia she might be having more acute exacerbation of COPD then pneumonia (2) Asthma with acute exacerbation Status: Acute Current Visit: No Qualifiers: Asthma severity: moderate persistent Assessment: improved will continue with steroid and Duonebs (3) GERD (gastroesophageal reflux disease) Status: Chronic Current Visit: No Assessment: stable (4) Hypertension Status: Chronic Current Visit: No Assessment: stable
[2017-07-31] MEDS: ENOXAPARIN SODIUM 30 MG/0.3 ML DISP.SYRIN SQ SCH (13:13)
[2017-07-31] MEDS: DOCUSATE SODIUM 100 MG/10 ML S/F LIQUID PO SCH (13:13)
[2017-07-31] MEDS ORDERED: SODIUM CHLORIDE NASAL SPRAY NS ONE (16:30)
[2017-07-31] MEDS: guaiFENesin DM 100 MG/10 MG/5 ML 118ML BOTTLE PO PRN ×2 (17:08→21:15)
[2017-07-31] MEDS: SODIUM CHLORIDE NASAL SPRAY NS PRN ×2 (17:09→21:17)
[2017-07-31] MEDS ORDERED: MAGNESIUM HYDROXIDE 400 MG/5 ML 30ML UDC PO ONE (20:28)
[2017-07-31] MEDS: MELATONIN 3 MG TABLET PO SCH (21:15)
[2017-08-01] MEDS: IPRATROPIUM/ALBUTEROL SULFATE 3 ML AMPUL.NEB NEB SCH (08:57)
[2017-08-01] MEDS: CARVEDILOL 12.5 MG TABLET PO SCH (09:46)
[2017-08-01] MEDS: FLUTICASONE PROPIONATE 120 SPRAY/16 GR BOTTLE NS SCH (09:47)
[2017-08-01] MEDS: OMEPRAZOLE 20 MG CAPSULE.DR PO SCH (09:47)
[2017-08-01] MEDS: HYDROCHLOROTHIAZIDE 25 MG TABLET PO SCH (09:49)
[2017-08-01] MEDS: MONTELUKAST SODIUM 10 MG TABLET PO SCH (09:50)
[2017-08-01] MEDS: DOCUSATE SODIUM 100 MG/10 ML S/F LIQUID PO SCH (09:51)
[2017-08-01] MEDS: CHOLECALCIFEROL (VIT D3) 1,000 UNIT TABLET PO SCH (09:51)
[2017-08-01] MEDS: methylPREDNISolone SOD SUCC 40 MG/ML VIAL IVP SCH (09:51)
[2017-08-01] MEDS ORDERED: methylPREDNISolone SOD SUCC 125 MG/2 ML VIAL ONE (09:54)
[2017-08-01 10:10] VITALS: BP 142/87
--- NOTE | 2017-08-01 11:24 | Discharge Summary ---
Discharge Summary - Discharge Sumary History of Present Illness: 82-year-old white female who has a history of COPD and asthma. Patient states approximately 5 to 6 days ago she start having some increasing shortness of breath dyspnea. Patient was having a lot of wheezing. Patient was using inhalers much more than her baseline. Patient does wear oxygen and not had to start using it during the day in order to keep yourself comfortable. Patient was seen by Dr. Clemente four days ago and was started on steroids and azithromycin. Patient stated initially got some better but then over the last 24 to 36 hours her breathing started to become worse. Patient does have increasing dyspnea and shortness of breath even with the supplemental oxygen. Patient subsequently came to the emergency room for evaluation. Patient was felt to have some hilar infiltrate related to possible pneumonia. Patient was subsequently admitted to the hospital for further care and evaluation. Condition at Discharge: Stable Home Medications: Ambulatory Orders Medication Instructions Recorded Cetirizine HCl [Zyrtec] 10 mg PO D 09/05/14 Cholecalciferol [Vitamin D-3] 1,000 unit PO DAILY 09/05/14 Fluticasone Propionate [Flonase] 1 spray NS D 09/05/14 Consultations this Visit: None Procedures this Visit: None Allergies/Adverse Reactions: Allergies Allergy/AdvReac Type Severity Reaction Status Date / Time penicillin G Allergy Unknown Verified 04/26/12 18:20 levofloxacin [From Levaquin] AdvReac Intermediate Localized Verified 07/29/17 10 :45 Redness Patient Problems: Current Active Problems Problem Status Onset Pulmonary infiltrate in right lung on chest x-ray Acute Discharge Summary: Patient was admitted ACUTE care after failing outpatient treatment for her asthma exacerbation. CXR showed pneumonia so patient treated with rocephin and zithromax. However CT did not show this. She was treated with IV steroids, duonebs, and O2. She slowly began to feel better and O2 was weaned down. She was pretty deconditioned and felt unsafe to return home alone. Therefore she was transitioned to SNF. Hospital Course: Discharge Dx. ASthma exacerbation. Bronchitis. Disp - SNF
[2017-08-01] MEDS: ENOXAPARIN SODIUM 30 MG/0.3 ML DISP.SYRIN SQ SCH (12:50)
== END 2017-08-01 12:30 | DRG 194 ==
LOC: ED 16:28 → SOUTH 18:51
PROVIDERS: ADMIT Family Medicine; ATTEND Family Medicine
DX: J18.1 Lobar pneumonia, unspecified organism (principal); J45.901 Unspecified asthma with (acute) exacerbation; J44.9 Chronic obstructive pulmonary disease, unspecified; K21.9 Gastro-esophageal reflux disease without esophagitis; I10 Essential (primary) hypertension
CPT/HCPCS: 36415; 71046; 71260; 80053; 81002; 82550; 84484; 85025; 87040; 87086; 93005; 94640; 94760; J0456; J0696; J1650; J1956; J2920; J2930; J7050; 99222; 99232; 99238; 99284; Q9967; J1030; S1016

== ENCOUNTER 2017-08-01 12:38 | Inpatient (IN) | payer OTHER ==
[2017-08-01 14:17] VITALS: BMI 36.7
[2017-08-01] MEDS ORDERED: ALBUTEROL SULFATE 2.5 MG/3 ML AMPUL.NEB NEB PRN (14:19)
[2017-08-01] MEDS: IPRATROPIUM/ALBUTEROL SULFATE 3 ML AMPUL.NEB NEB SCH ×3 (14:27→21:00)
[2017-08-01] MEDS ORDERED: ENOXAPARIN SODIUM 40 MG/0.4 ML DISP.SYRIN SQ SCH (15:00)
[2017-08-01] MEDS: MELATONIN 3 MG TABLET PO SCH (20:43)
[2017-08-01] MEDS: CARVEDILOL 12.5 MG TABLET PO SCH (20:43)
[2017-08-01] MEDS: FLOVENT IH SCH (20:47)
[2017-08-01] MEDS ORDERED: MELATONIN 3 MG TABLET PO SCH (21:00)
[2017-08-02] MEDS ORDERED: predniSONE 20 MG TABLET PO ONE (08:13)
[2017-08-02] MEDS: HYDROCHLOROTHIAZIDE 25 MG TABLET PO SCH (08:17)
[2017-08-02] MEDS: predniSONE 10 MG TABLET PO SCH (08:17)
[2017-08-02] MEDS: CARVEDILOL 12.5 MG TABLET PO SCH ×2 (08:18→20:31)
[2017-08-02] MEDS: CHOLECALCIFEROL (VIT D3) 1,000 UNIT TABLET PO SCH (08:18)
[2017-08-02] MEDS: MONTELUKAST SODIUM 10 MG TABLET PO SCH (08:18)
[2017-08-02] MEDS: FLUTICASONE PROPIONATE 120 SPRAY/16 GR BOTTLE NS SCH (08:18)
[2017-08-02] MEDS: LORATADINE 10 MG TABLET PO SCH (08:18)
[2017-08-02] MEDS: OMEPRAZOLE 20 MG CAPSULE.DR PO SCH (08:19)
[2017-08-02] MEDS: IPRATROPIUM/ALBUTEROL SULFATE 3 ML AMPUL.NEB NEB SCH ×4 (08:20→20:16)
[2017-08-02] MEDS ORDERED: CETIRIZINE HCL 10 MG PO SCH (09:00)
[2017-08-02] MEDS: FLOVENT IH SCH (11:18)
[2017-08-02] MEDS: ENOXAPARIN SODIUM 40 MG/0.4 ML DISP.SYRIN SQ SCH (13:16)
[2017-08-02] MEDS ORDERED: DOCUSATE SODIUM 100 MG CAPSULE PO PRN (18:41)
[2017-08-02] MEDS: guaiFENesin DM 100 MG/10 MG/5 ML 118ML BOTTLE PO PRN (20:31)
[2017-08-02] MEDS: MELATONIN 3 MG TABLET PO SCH (20:31)
[2017-08-02] MEDS: BUDESONIDE 0.5MG/2ML AMPUL.NEB NEB SCH (20:52)
[2017-08-03] MEDS: CARVEDILOL 12.5 MG TABLET PO SCH ×2 (08:49→20:42)
[2017-08-03] MEDS: predniSONE 10 MG TABLET PO SCH (08:49)
[2017-08-03] MEDS: LORATADINE 10 MG TABLET PO SCH (08:49)
[2017-08-03] MEDS: CHOLECALCIFEROL (VIT D3) 1,000 UNIT TABLET PO SCH (08:50)
[2017-08-03] MEDS: MONTELUKAST SODIUM 10 MG TABLET PO SCH (08:50)
[2017-08-03] MEDS: FLUTICASONE PROPIONATE 120 SPRAY/16 GR BOTTLE NS SCH (08:50)
[2017-08-03] MEDS: HYDROCHLOROTHIAZIDE 25 MG TABLET PO SCH (08:50)
[2017-08-03] MEDS: OMEPRAZOLE 20 MG CAPSULE.DR PO SCH (08:50)
[2017-08-03] MEDS: IPRATROPIUM/ALBUTEROL SULFATE 3 ML AMPUL.NEB NEB SCH ×4 (10:03→20:53)
[2017-08-03] MEDS: BUDESONIDE 0.5MG/2ML AMPUL.NEB NEB SCH ×2 (10:06→20:46)
[2017-08-03] MEDS: guaiFENesin DM 100 MG/10 MG/5 ML 118ML BOTTLE PO PRN ×2 (12:29→20:43)
[2017-08-03] MEDS: ENOXAPARIN SODIUM 40 MG/0.4 ML DISP.SYRIN SQ SCH (14:33)
[2017-08-03] MEDS ORDERED: MAGNESIUM HYDROXIDE 400 MG/5 ML 30ML UDC PO ONE (19:25)
[2017-08-03] MEDS: MELATONIN 3 MG TABLET PO SCH (20:42)
[2017-08-04] MEDS: IPRATROPIUM/ALBUTEROL SULFATE 3 ML AMPUL.NEB NEB SCH ×4 (09:00→21:09)
[2017-08-04] MEDS: LORATADINE 10 MG TABLET PO SCH (09:44)
[2017-08-04] MEDS: CARVEDILOL 12.5 MG TABLET PO SCH ×2 (09:45→21:04)
[2017-08-04] MEDS: predniSONE 10 MG TABLET PO SCH (09:45)
[2017-08-04] MEDS: FLUTICASONE PROPIONATE 120 SPRAY/16 GR BOTTLE NS SCH (09:45)
[2017-08-04] MEDS: CHOLECALCIFEROL (VIT D3) 1,000 UNIT TABLET PO SCH (09:46)
[2017-08-04] MEDS: OMEPRAZOLE 20 MG CAPSULE.DR PO SCH (09:46)
[2017-08-04] MEDS: HYDROCHLOROTHIAZIDE 25 MG TABLET PO SCH (09:46)
[2017-08-04] MEDS: MONTELUKAST SODIUM 10 MG TABLET PO SCH (09:46)
[2017-08-04] MEDS: BUDESONIDE 0.5MG/2ML AMPUL.NEB NEB SCH ×2 (10:59→21:19)
[2017-08-04] MEDS: ENOXAPARIN SODIUM 40 MG/0.4 ML DISP.SYRIN SQ SCH (13:35)
[2017-08-04] MEDS: MELATONIN 3 MG TABLET PO SCH (21:04)
[2017-08-05] MEDS: LORATADINE 10 MG TABLET PO SCH (08:45)
[2017-08-05] MEDS: CARVEDILOL 12.5 MG TABLET PO SCH ×2 (08:45→20:46)
[2017-08-05] MEDS: OMEPRAZOLE 20 MG CAPSULE.DR PO SCH (08:46)
[2017-08-05] MEDS: MONTELUKAST SODIUM 10 MG TABLET PO SCH (08:46)
[2017-08-05] MEDS: FLUTICASONE PROPIONATE 120 SPRAY/16 GR BOTTLE NS SCH (08:46)
[2017-08-05] MEDS: HYDROCHLOROTHIAZIDE 25 MG TABLET PO SCH (08:46)
[2017-08-05] MEDS: predniSONE 10 MG TABLET PO SCH (08:46)
[2017-08-05] MEDS: CHOLECALCIFEROL (VIT D3) 1,000 UNIT TABLET PO SCH (08:47)
[2017-08-05] MEDS: BUDESONIDE 0.5MG/2ML AMPUL.NEB NEB SCH ×2 (09:15→20:48)
[2017-08-05] MEDS: IPRATROPIUM/ALBUTEROL SULFATE 3 ML AMPUL.NEB NEB SCH ×4 (09:15→20:40)
[2017-08-05] MEDS: ENOXAPARIN SODIUM 40 MG/0.4 ML DISP.SYRIN SQ SCH (13:16)
[2017-08-05] MEDS: guaiFENesin DM 100 MG/10 MG/5 ML 118ML BOTTLE PO PRN (13:17)
[2017-08-05] MEDS: MELATONIN 3 MG TABLET PO SCH (20:46)
--- NOTE | 2017-08-06 07:57 | Discharge Summary ---
Discharge Summary - Discharge Sumary History of Present Illness: Patient was admitted Acute with bronchitis and hypoxia. After she improved she was still too weak to return home so was transistioned to SNF. Condition at Discharge: Stable Home Medications: Ambulatory Orders Medication Instructions Recorded Cetirizine HCl [Zyrtec] 10 mg PO D 09/05/14 Cholecalciferol [Vitamin D-3] 1,000 unit PO DAILY 09/05/14 Fluticasone Propionate [Flonase] 1 spray NS D 09/05/14 Consultations this Visit: None Procedures this Visit: None Allergies/Adverse Reactions: Allergies Allergy/AdvReac Type Severity Reaction Status Date / Time penicillin G Allergy Unknown Verified 04/26/12 18:20 levofloxacin [From Levaquin] AdvReac Intermediate Localized Verified 07/29/17 10 :45 Redness Discharge Summary: Patient did well with PT and OT. Became stronger and more independent until it was felt that she would be safe to return home alone. Her breathing stayed stable. Pulmicort used instead of flovent. Steroids continued to wean down. Will complete taper as an outpatient. She no longer required oxygen. Discharged in good condition. Hospital Course: Discharge Dx: Weakness. Asthmatic exacerbation. Hypoxia. Allergic rhinitis. Disposition - home
[2017-08-06] MEDS: MONTELUKAST SODIUM 10 MG TABLET PO SCH (08:41)
[2017-08-06] MEDS: FLUTICASONE PROPIONATE 120 SPRAY/16 GR BOTTLE NS SCH (08:41)
[2017-08-06] MEDS: HYDROCHLOROTHIAZIDE 25 MG TABLET PO SCH (08:41)
[2017-08-06] MEDS: OMEPRAZOLE 20 MG CAPSULE.DR PO SCH (08:41)
[2017-08-06] MEDS: predniSONE 10 MG TABLET PO SCH (08:41)
[2017-08-06] MEDS: LORATADINE 10 MG TABLET PO SCH (08:41)
[2017-08-06] MEDS: CARVEDILOL 12.5 MG TABLET PO SCH (08:41)
[2017-08-06] MEDS: CHOLECALCIFEROL (VIT D3) 1,000 UNIT TABLET PO SCH (08:41)
[2017-08-06] MEDS: IPRATROPIUM/ALBUTEROL SULFATE 3 ML AMPUL.NEB NEB SCH (09:15)
[2017-08-06] MEDS: BUDESONIDE 0.5MG/2ML AMPUL.NEB NEB SCH (09:18)
[2017-08-06] MEDS: guaiFENesin DM 100 MG/10 MG/5 ML 118ML BOTTLE PO PRN (09:27)
[2017-08-06 11:27] VITALS: BP 152/84
[2017-08-08] MEDS ORDERED: predniSONE 10 MG TABLET PO SCH (09:00)
[2017-08-11] MEDS ORDERED: predniSONE 10 MG TABLET PO SCH (09:00)
== END 2017-08-06 10:00 | disposition home or self-care (01) | DRG 947 ==
LOC: SOUTH 12:38
PROVIDERS: ADMIT Family Medicine; ATTEND Family Medicine
DX: R53.1 Weakness (principal); J18.9 Pneumonia, unspecified organism; J45.901 Unspecified asthma with (acute) exacerbation; I49.9 Cardiac arrhythmia, unspecified; I10 Essential (primary) hypertension; K21.9 Gastro-esophageal reflux disease without esophagitis
CPT/HCPCS: 94640; 94760; J1650; J7626; J7512

== ENCOUNTER 2017-09-15 16:33 | Outpatient (CLI) | payer OTHER ==
[2017-09-15 16:50] LABS: BASOPHILS % 0.3 (0.0-1.5); MEAN CORPUSCULAR HEMOGLOBIN 30.5 pg (28.0-34.0); MEAN CORPUSCULAR VOLUME 98.6 fl (80.0-100.0); MONOCYTES % 6.3 % (0.0-11.0); NEUTROPHILS # 6.6 # k/uL (1.4-7.7)
[2017-09-15 17:06] LABS: eGFR (Non-African) > 60
--- NOTE | 2017-09-15 18:58 | Diagnostic Imaging Report ---
MAXWELL CRUZ [facility] [address] [facility] [address] [address] Report Submission Date: Sep 15, 2017 5:11:12 PM CDT Patient Study Name: LEWIS JACK Date: Sep 15, 2017 4:45:16 PM CDT Modality Type: DX Gender: F Description: CHEST : 31 Institution: [facility] Physician: MAXWELL CRUZ Examination: PA and lateral chest. History: CXR, COUGH, WHEEZING, AND FEVER X3 DAYS (Hx) Comparison exam: 28 July 2017 Findings: PA lateral chest demonstrates a prominent cardiac silhouette. Tortuous aorta. Elevated right hemidiaphragm. Continued fullness involving the right hilar region. Chronic interstitial changes. Articular degenerative changes and right humeral fixation hardware. Impression: Continued interstitial fullness and right hilar infiltrate. No definite effusion. Cardiomegaly. Electronically signed on Sep 15, 2017 5:11:12 PM CDT by: Alvaro WHARTON
== END 2017-09-15 16:35 ==
LOC: LAB 16:33
PROVIDERS: ATTEND Physician Assistant
DX: R06.2 Wheezing (principal); R50.9 Fever, unspecified
CPT/HCPCS: 36415; 71046; 80053; 85025

== ENCOUNTER 2017-10-11 13:12 | Outpatient (CLI) | payer OTHER ==
[2017-10-11] MEDS ORDERED: ALBUTEROL SULFATE 2.5 MG/3 ML AMPUL.NEB NEB ONE (13:26)
== END 2017-10-11 13:13 ==
LOC: RT 13:12
PROVIDERS: ATTEND Family Medicine
DX: J45.909 Unspecified asthma, uncomplicated (principal)
CPT/HCPCS: 94060

== ENCOUNTER 2017-10-28 12:28 | Outpatient (CLI) | payer OTHER ==
--- NOTE | 2017-11-09 11:14 | CONSULTATION REPORT ---
PRIMARY CARE PROVIDER: Dr. Darling Clemente CONSULTING PHYSICIAN: Dr. Helen Marquez CHIEF COMPLAINT: "I need help with my breathing." SIGNIFICANT PROBLEM LIST: 1. 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 2. Moderate chronic obstructive pulmonary disease (COPD), GOLD Class 2. 3. History of bronchitis. 4. History of pneumonia. 5. Hypertension. 6. GERD. 7. Colon cancer. 8. Left deep venous thrombosis (DVT) in 2017: Treated with anticoagulation for 6 months. 9. Class 2 obesity. BMI of 36.7. HISTORY OF PRESENT ILLNESS: This is an 82-year-old female who is accompanied to the Pulmonary Clinic with her daughter. On July 25, 2017, patient presented to the ED and was given an diagnosis of acute bronchitis/asthma treated with azithromycin and prednisone. These symptoms did not resolve and she was admitted. A chest CT scan done at that time showed patchy ground glass opacities and some emphysematous changes. On September 15, 2017, she complained of fever and wheezes. She was treated with IM Solu-Medrol and ceftriaxone and placed on an antibiotic and prednisone taper. On September 19, 2017. patient saw Dr. Clemente in follow up and her prednisone was weaned off slowly. Patient states that her inhaler helps her very much. She states albuterol is the inhaler that helps her. She does take her Flovent as directed. She does have home oxygen which she uses at night set at 2 liters. She has never had a sleep study. Currently, she states she overall feels okay, although she does complain of a cough and the sputum is clear in color. She does complain of dyspnea on exertion; however, her albuterol inhaler helps with that. She has been using albuterol inhalers for approximately the last 10 years. She does complain of occasional chest pain. No PND. She has noticed swelling of her ankles. She states she has GERD. There is also postnasal drip. She has been prednisone and antibiotics for her lung disease. She has never had any hemoptysis. Her weight is stable and her appetite is good. Her energy level is fair. She denies any fever, chills, or sweats. Tobacco use: Life-long nonsmoker. REVIEW OF SYSTEMS: Please see HPI for pertinent review of systems and also please see [facility] patient intake record. ALLERGIES: Penicillin. MEDICATIONS: 1. Melatonin 10 mg daily. 2. Fish oil 1000 mg daily. 3. Garlic 1000 mg daily. 4. Omeprazole 20 mg daily. 5. Carvedilol 12.5 mg b.i.d. 6. Claritin 10 mg daily. 7. Vitamin D3, 2000 mg daily. 8. Probiotic 1 tablet daily. 9. Vitamin C 500 mg daily. 10. Tumeric 2 tablets daily. 11. Hydrochlorothiazide 25 mg daily. 12. Vitamin B12, 1 tablet daily. 13. Albuterol MDI 2 puffs p.r.n. 14. Flovent 2 puffs b.i.d. 15. Senna with docusate 50/8.6 mg p.r.n. 16. Albuterol nebulizer p.r.n. shortness of breath: The last use of the nebulizer was in September 2017. SOCIAL HISTORY: She lives alone. She has 2 daughters. FAMILY HISTORY: Mother with heart disease. PHYSICAL EXAMINATION: VITAL SIGNS: BP: 174/73, P: 54, R: 24, T: 96.7, room air oxygen saturation was 95%. Height: 5 feet. Weight: 188 pounds. BMI is 36.7, Class 2 obesity. GENERAL: This is a well-developed obese female in no acute distress speaking in full sentences. HEENT: Pupils are equal and reactive to light. Oropharynx is clear. No thrush. No erythema. NECK: Supple. No lymphadenopathy. LUNGS: Bilateral air excursion. Bilateral wheezes on forced expiration. CARDIAC: Rate and rhythm are regular. No murmur, rubs, or gallops. ABDOMEN: Obese. Soft and nontender. Difficult to examine for organomegaly. EXTREMITIES: No cyanosis, or clubbing. Edema is 1+ to 2+, left leg is 2+ and right leg is 1+. NEUROLOGIC: Alert and oriented x3. Grossly nonfocal neurologic exam. IMAGING: All imaging independently reviewed by me personally. 1. PFT on October 11, 2017. FVC was 1.33 liters, 66% of predicted, FEV1 was 0.87 liters, 58% of predicted, FEV1/FVC was 0.65 liters. There is no bronchodilator response. Interpretation: Moderate COPD, GOLD Class 2. 2. Chest x-ray on September 15, 2017. Cephalization. Interstitial infiltrates. Elevated right hemidiaphragm. 3. Chest CT scan on July 29, 2017. Patchy ground glass opacities. Emphysematous changes. 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 Currently, patient is only using a steroid inhaler. Historically, she states that albuterol helps her immensely. Therefore, my plan is to stop her fluticasone inhaler and start her on Symbicort. PLAN: 1. Symbicort 80/4.5 mcg 2 puffs b.i.d. 2. Continue albuterol MDI as a rescue inhaler. 3. Patient to bring in nebulizer medicine she has at home. She thinks it is albuterol but she is not sure. PROBLEM #2: Volume overload, possible congestive heart failure (CHF). Patient clearly has peripheral edema. She also states that she does have a bed at home where she raises the head so she can sleep. The only potential diuretic that she is on is hydrochlorothiazide 25 mg. PLAN: 1. Echocardiogram. 2. Would likely benefit from a stronger diuretic. PROBLEM #3: Nocturnal hypoxemia. Patient states she uses oxygen saturation only at night at 2 liters nasal cannula. PLAN: 1. Continue nocturnal oxygen saturation at 2 liters. 2. Patient to bring in nocturnal oxygen tests for me to review. 3. Return to clinic in 1 month. cc: Dr. Darling WHARTON
== END 2017-10-28 12:30 ==
LOC: PULMONARY 12:28
PROVIDERS: ATTEND Internal Medicine Pulmonary Disease
DX: J45.909 Unspecified asthma, uncomplicated (principal); J44.9 Chronic obstructive pulmonary disease, unspecified; R60.9 Edema, unspecified; R09.02 Hypoxemia; E87.70 Fluid overload, unspecified
CPT/HCPCS: 99214; G0463

== ENCOUNTER 2017-11-08 12:58 | Outpatient (CLI) | payer OTHER | END 2017-11-08 13:00 | LOC: CARD 12:58 | PROVIDERS: ATTEND Internal Medicine Cardiovascular Disease | DX: I50.9 Heart failure, unspecified (principal) ==

== ENCOUNTER 2017-11-25 12:09 | Outpatient (CLI) | payer OTHER ==
--- NOTE | 2017-11-29 10:25 | OP Clinic Progress Note ---
PRIMARY CARE PROVIDER: Dr. Darling Clemente CHIEF COMPLAINT: "My knee hurts and my breathing is okay." SIGNIFICANT PROBLEM LIST: 1. Asthma/chronic obstructive pulmonary disease (COPD) overlap. 2. Moderate chronic obstructive pulmonary disease (COPD), GOLD Class 2. 3. History of bronchitis. 4. History of pneumonia. 5. Hypertension. 6. GERD. 7. Colon cancer. 8. Left deep venous thrombosis (DVT) in 2017: Treated with anticoagulation for 6 months. 9. Class 2 obesity. BMI of 36.7. HISTORY OF PRESENT ILLNESS: This is an 82-year-old female who returns for follow up regarding her asthma/COPD. She has been using the Symbicort 80/4.5, two puffs b.i.d. as prescribed on the last visit. She says that it appears to be helping. She also brought in the medicine that she uses in her nebulizer, which is ipratropium/albuterol. She also brought in her previous nocturnal oxygen saturation studies. Overall, she feels that her breathing is doing fine. Her main complaint is actually left knee pain. She states that this has been going on approximately 2 weeks and she has not contacted her primary care provider. She feels like maybe it is slowly getting better. ALLERGIES: Penicillin. MEDICATIONS: 1. Melatonin 10 mg daily. 2. Fish oil 1000 mg daily. 3. Garlic 1000 mg daily. 4. Omeprazole 20 mg daily. 5. Carvedilol 12.5 mg b.i.d. 6. Claritin 10 mg daily. 7. Vitamin D3, 2000 mg daily. 8. Probiotic 1 tablet daily. 9. Vitamin C 500 mg daily. 10. Tumeric 2 tablets daily. 11. Hydrochlorothiazide 25 mg daily. 12. Vitamin B12, 1 tablet daily. 13. Docusate 50/8.6 mg p.r.n. 14. Symbicort 80/4.5 two puffs b.i.d. 15. Tylenol 500 mg p.r.n. 16. Albuterol MDI 2 puffs p.r.n. 17. DuoNeb via nebulizer p.r.n. PHYSICAL EXAMINATION: VITAL SIGNS: BP: 171/87, P: 68, R: 24, T: 97.5, room air oxygen saturation was 94%. Weight: 184 pounds (decreased 4 pounds from last visit). GENERAL: This is a well-developed obese female in no acute distress speaking in full sentences. HEENT: Pupils are equal and reactive to light. Oropharynx is clear. No thrush. No erythema. NECK: Supple. No lymphadenopathy. LUNGS: Good bilateral air excursion. Clear to auscultation. No wheezes, rales, or rhonchi. CARDIAC: Rate and rhythm are regular. No murmur, rubs, or gallops. ABDOMEN: Obese. Soft and nontender. EXTREMITIES: No cyanosis or clubbing. Pedal edema is trace to 1+. NEUROLOGIC: Alert and oriented x3. Grossly nonfocal neurologic exam. IMAGING: All imaging independently reviewed by me personally. 1. Echo on November 08, 2017. Ejection fraction (EF) of 55%, increased left atrium size, mild MR, normal RVSP, Class 1 diastolic dysfunction. 2. Multiple nocturnal pulse oximetry tests beginning back in November 2014, December 2014, March 2015, June 2015, and October 2015. All of her tests show nocturnal desaturation that qualifies for home oxygen. The most recent test on October 31, 2015, shows 86.3 minutes with an oxygen saturation below 88%, 165.9 minutes with an oxygen saturation less than 89%. The highest oxygen saturation is 97% and the lowest is 79%. ASSESSMENT AND PLAN: PROBLEM #1: Asthma/chronic obstructive pulmonary disease (COPD) overlap: Moderate COPD, GOLD Class 2 via PFTs. Patient states overall that she is doing well on the Symbicort. I have educated her that we could increase the dose of the Symbicort if she wanted to see if she could get any better but at the present time, she is happy using her Symbicort 80/4.5. PLAN: 1. Continue Symbicort 80/4.5, two puffs b.i.d. 2. Continue albuterol MDI as a rescue inhaler. 3. Continue DuoNeb via her nebulizer p.r.n. PROBLEM #2: Volume overload. Patient still has edema of her lower extremities, although it seems improved from the last visit. She does not have evidence of systolic heart failure and has Class 1 diastolic heart failure. PLAN: 1. Continue hydrochlorothiazide at present. 2. May need a stronger diuretic in the future. PROBLEM: #3: Nocturnal hypoxemia. I sit down with the patient and reviewed with her all of the studies showing how low her oxygen saturation really drops to so that she understands how important it is for her to wear the oxygen. She states that she appreciates how low her oxygen level can get and that she will do a better job of wearing her nocturnal oxygen. I also explained to her that chronic hypoxemia can also lead to pedal and ankle edema. PLAN: 1. Continue nocturnal oxygen at 2 liters per nasal cannula. 2. Return to clinic in 4 months. cc: Dr. Darling WHARTON
== END 2017-11-25 14:20 ==
LOC: PULMONARY 12:09
PROVIDERS: ATTEND Internal Medicine Pulmonary Disease
DX: J44.9 Chronic obstructive pulmonary disease, unspecified (principal); E87.70 Fluid overload, unspecified; R09.02 Hypoxemia
CPT/HCPCS: 99214; G0463

== ENCOUNTER 2018-01-16 14:26 | Outpatient (CLI) | payer OTHER ==
[2018-01-16 15:18] LABS: eGFR (Non-African) > 60
== END 2018-01-16 14:27 ==
LOC: LAB 14:26
PROVIDERS: ATTEND Family Medicine
DX: E11.9 Type 2 diabetes mellitus without complications (principal)
CPT/HCPCS: 36415; 80048; 83036

== ENCOUNTER 2018-07-11 10:06 | Outpatient (CLI) | payer OTHER ==
[2018-07-11 10:59] LABS: MEAN CORPUSCULAR HEMOGLOBIN 30.1 pg (28.0-34.0)
--- NOTE | 2018-07-11 12:52 | Diagnostic Imaging Report ---
JOSH REYNA [facility] [address] [facility] [address] [address] Report Submission Date: Jul 11, 2018 12:32:13 PM CDT Patient Study Name: LEWIS JACK Date: Jul 11, 2018 11:59:42 AM CDT Modality Type: DX Gender: F Description: SACRUM COCCYX 2 VIEW+ : 31 Institution: [facility] Physician: JOSH REYNA EXAMINATION: SACRUM COCCYX 2 VIEW+ HISTORY: CHRONIC LOWER BACK AND SCIATICA PAIN. (Hx) COMPARISON: None FINDINGS: No acute fracture is identified. The femoral heads appear well-seated within their respective acetabula. The hip joint spaces are preserved. The sacroiliac joints appear normal. Degenerative change in the lower lumbar spine is partially imaged. IMPRESSION: No acute fracture identified. Electronically signed on Jul 11, 2018 12:32:13 PM CDT by: José Miguel WHARTON
--- NOTE | 2018-07-11 12:53 | Diagnostic Imaging Report ---
JOSH REYNA [facility] [address] [facility] [address] [address] Report Submission Date: Jul 11, 2018 12:29:59 PM CDT Patient Study Name: LEWIS JACK Date: Jul 11, 2018 11:59:42 AM CDT Modality Type: DX Gender: F Description: L SPINE 4 VIEWS : 31 Institution: [facility] Physician: JOSH REYNA EXAMINATION: L SPINE 4 VIEWS HISTORY: CHRONIC LOWER BACK AND SCIATICA PAIN. SPECIAL VIEWS REQUESTED BY DR DUNAWAY (Hx) COMPARISON: None FINDINGS: Multiple surgical clips are noted. There is lumbar dextroscoliosis. There is grade 1 anterolisthesis of L4 on L5. No acute fracture or compression deformity is identified. There is a moderate lumbar degenerative disc and joint disease. No pars defect is identified on the oblique images. IMPRESSION: Moderate lumbar degenerative change without acute fracture identified. Electronically signed on Jul 11, 2018 12:29:59 PM CDT by: José Miguel WHARTON
--- NOTE | 2018-07-18 07:55 | CONSULTATION REPORT ---
REFERRING PHYSICIAN: CONSULTING PHYSICIAN: Richie Roy M.D. CHIEF COMPLAINT: Low back pain. HISTORY OF PRESENT ILLNESS: The patient is an 83-year-old female who presents with chronic low back pain, worse on the right side, for the past five years. She denies any trauma or specific inciting event. She denies any prior lumbar spine surgery or hip surgeries. She does report having one epidural injection for right lower extremity radicular-type pain over 15 to 20 years ago, and that provided complete relief at that time. She denies any radicular-type pain now. She denies any other injections in the past 15 years. She denies chiropractic therapy. She did have physical therapy following an episode of pneumonia and inpatient hospital stay back in 2016, but she has not had any physical therapy recently specifically for her low back pain. Low back pain is described as constant, aching, throbbing, dull, rated 7/10 intensity. The pain is located in the midline low back, bilateral lumbar paraspinals and bilateral sacral sulci region. She denies any pain radiation into the buttocks or lower extremities. She endorses generalized weakness, but denies any focal weakness in her lower extremities. She denies any numbness or tingling in the lower extremities. She denies saddle anesthesia or bladder incontinence. Low back pain is worse with any walking or standing. Pain improves with sitting or lying down. The patient is only taking [id number] Tylenol and no other pain medications. PAST MEDICAL HISTORY: Asthma and seasonal allergies. Prior history of pneumonia. PAST SURGICAL HISTORY: Two colon resections in 2011 with reanastomosis, a cholecystectomy in 1988, hysterectomy in 1977, right total knee replacement. FAMILY HISTORY: Noncontributory. SOCIAL HISTORY: The patient is retired. She denies smoking, alcohol or illegal drug use. REVIEW OF SYSTEMS: A 14-point review of systems was performed and was positive for low back pain and negative for all other systems. More detail on the patients past medical history, medication reconciliation, social history, family history and review of systems are shown in the paper medical chart. PHYSICAL EXAMINATION: VITALS: Blood pressure is 180/72, pulse 64, respirations 21, temperature 98.3, oxygen saturation 93% on room air. GENERAL: The patient is alert and oriented x 4, pleasant and cooperative. She does have obesity. HEENT: Pupils are equal and reactive to light and accommodation. Extraocular muscles intact. No gross abnormalities. CARDIOVASCULAR: Regular rate and rhythm. No murmurs, rubs or gallops. PULMONARY: Lungs are clear to auscultation bilaterally. ABDOMEN: Soft, nontender, nondistended. : Deferred. SKIN: No rashes or lesions identified. MUSCULOSKELETAL: Lumbar inspection shows no gross abnormalities. Lumbar spine range of motion is significantly decreased in flexion and extension with pain throughout the range of motion. There is pain with facet loading and extension and rotation. Positive tenderness to palpation at the spinous processes, bilateral lumbar paraspinal muscles and bilateral sacral sulci. Seated slump and straight leg tests are negative bilaterally, but do cause some axial low back pain. Positive AXEL, positive FAIR, positive Stinchfields for back pain. Hip range of motion is decreased in external rotation and internal rotation bilaterally, but negative AXEL, negative FAIR for groin pain. NEUROLOGIC: Cranial nerves II-XII grossly intact. No focal deficits. Deep tendon reflexes are 1/4 in bilateral patellar, medial hamstring and Achilles tendons. Manual muscle testing shows normal strengths in bilateral lower extremities with 5/5 hip flexion, hip abduction, knee flexion, knee extension, dorsiflexion, EHL extension and plantarflexion. Sensation to light touch is intact in bilateral lower extremities in all dermatomes symmetrically. Plantar reflexes are downgoing bilaterally. No clonus or fasciculations. ASSESSMENT: 1. Chronic low back pain. 2. Lumbar facet arthropathy. 3. Bilateral sacroiliitis. 4. Obesity. 5. Generalized deconditioning. 6. Gait dysfunction. PLAN: 1. Lumbar spine x-rays including AP, lateral, oblique, flexion and extension views. 2. SI joint (sacrum/coccyx) x-rays bilaterally. 3. The patient is to return to clinic in two weeks for follow-up of imaging studies, consider a right SI joint steroid injection versus lumbar facet injections at that visit. We will require insurance approval. DIO
== END 2018-07-11 11:50 | disposition home or self-care (01) ==
LOC: OUT 10:06
PROVIDERS: ATTEND Physical Medicine & Rehabilitation
DX: M54.5 Low back pain (principal); G89.29 Other chronic pain; M12.88 Other specific arthropathies, not elsewhere classified, other specified site; M46.1 Sacroiliitis, not elsewhere classified; E66.9 Obesity, unspecified; R26.9 Unspecified abnormalities of gait and mobility; R68.89 Other general symptoms and signs
CPT/HCPCS: 36415; 72110; 72220; 84443; 85027; 99214

== ENCOUNTER 2019-04-03 10:05 | Inpatient (IN) | payer OTHER ==
[2019-04-03] MEDS ORDERED: methylPREDNISolone SOD SUCC 125 MG/2 ML VIAL IV ONE (10:36)
[2019-04-03] MEDS: IPRATROPIUM/ALBUTEROL SULFATE 3 ML AMPUL.NEB NEB SCH ×4 (11:11→21:18)
[2019-04-03 11:24] LABS: BASOPHILS % 0.5 % (0.0-1.5); NEUTROPHILS # 3.5 # k/uL (1.4-7.7)
[2019-04-03 11:31] VITALS: BMI 38.9
[2019-04-03] MEDS: SODIUM CHLORIDE 0.9 % (FLUSH) 10 ML DISP.SYRIN IV SCH ×2 (11:36→21:09)
[2019-04-03 11:44] LABS: eGFR (Non-African) > 60
--- NOTE | 2019-04-03 12:08 | History and Physical Report ---
History of Present Illnes - History of Present Illness Reason for Visit: dyspnea History of Present Illness: 84-year-old white female you have a known history of COPD and asthma. Patient stated over the last week she is been having increasing shortness of breath dyspnea. Patient has been having to use her DuoNeb treatments more frequently within normal. Patient stated she is been wheezing quite a bit and with minimal exertion is getting short of breath. Patient is had a cough that has been slightly productive of some green to yellow phlegm. No home offices has been noted. Patient denies any chest pain. Patient was seen in the clinic in anti- ambulating back to the room her pulse ox the drop down to 78%.It did return well with 2 L of oxygen into the mid 90s. Patient was given high flow nebulization treatment in the office with minimal improvement. Patient was noted have market expiratory reading bilaterally with some scattered rales. Patient was subsequently admitted to the hospital for further care and evaluation. Patient does have a history of recurrent bronchitis/exacerbation of her COPD asthma. - Past Medical History Cardiac: HTN, Valve insufficiency (mitral reguritation) Pulmonary: Asthma, COPD, Other (DVT LLE September 2016) Gastrointestinal: GERD, Other (Colon cancer 2012 - [id number]) Heme/Onc: Anemia NOS, Cancer (colon) Psych: Anxiety Infectious Disease: Other (h/o C diff 2012) Endocrine: Osteoporosis - Past Surgical History Past Surgical History: Appendectomy, Cholecystectomy, Cataract Removal, Hysterectomy, Total Knee Replacement, Other (Right hemicolectomy for necrotic appendix (08/14) followed by further colonic resection in 01/14 due to colon cancer. Decortication of right sided empyema) - Past Family History Mother Family History: CAD, DM, (78) Brother 1 Family History: - Past Social History Smoke: No Alcohol: None Drugs: None Lives: Alone ( a year ago.) Domestic Violence: Negative - Health Maintenance Health Maintenance: Influenza Vaccine, Pneumococcal Vaccine (02/12/15 Pneumo 13; 11/23/12 Pneumo 23), Mammogram, Colonoscopy (05/22 - negative), DEXA Influenza Vaccine: Current for this Influenza Season Pneumonia Vaccine: Yes Resuscitation Status: Resusciation Status Resuscitation Status Full Code - Unable to Obtain History Unable to Obtain: No Review of Systems - Review of Systems Constitutional: Chills, Weakness. negative: Fever Eyes: negative: pain, vision change, eyelid inflammation ENT: Nose Discharge (clear), Nose Congestion. negative: Ear Pain, Ear Discharge, Nose Pain, Mouth Pain, Mouth Swelling, Throat Pain, Throat Swelling Respiratory: Cough, Shortness of Breath, SOB with Excertion, Sputum (green). ne gative: Hemoptysis, Pleuritic Pain Cardiovascular: negative: Chest Pain, Palpitations, Orthopnea, Paroxysmal Noc. Dyspnea, Edema, Light Headedness Gastrointestinal: negative: Nausea, Vomiting, Abdominal Pain, Diarrhea, Constipation, Melena, Hematochezia Genitourinary: negative: Dysuria, Frequency, Incontinence, Retention Musculoskeletal: Neck Pain. negative: Shoulder Pain, Back Pain Skin: negative: Rash Neurological: Weakness (generalized). negative: Numbness, Incoordination, Change in Speech - Medications/Allergies Allergies/Adverse Reactions: Allergies Allergy/AdvReac Type Severity Reaction Status Date / Time prednisone Allergy Mild Insomnia Verified 04/03/19 11:35 penicillin G Allergy Unknown Verified 04/26/12 18:20 levofloxacin [From Levaquin] AdvReac Intermediate Localized Verified 07/29/17 10:45 Redness Current Inpatient Medications: Current Inpatient Medications Albuterol/Ipratropium (Duoneb) 3 ml NEB Q4 [facility] Stop: 05/03/19 10:59 Last Admin: 04/03/19 11:11 Dose: 3 ml Enoxaparin Sodium (Lovenox) 30 mg SQ DAILY [facility] Stop: 04/18/19 08:59 Methylprednisolone Sodium Succinate (Solu-Medrol) 125 mg IV NOW ONE Stop: 04/03/19 10:37 Last Admin: 04/03/19 11:37 Dose: 125 mg Methylprednisolone Sodium Succinate (Solu-Medrol) 60 mg IVP Q12 [facility] Stop: 05/03/19 20:59 Exam - Exam Vital Signs: Vital Signs (72 hours) 04/03/19 10:20 Temperature 97.5 F L Pulse Rate [ 66 Right] Respiratory 22 Rate Blood Pressure 152/84 [Left Arm] Blood Pressure 183/82 [Right Arm] O2 Sat by Pulse 93 Oximetry General: Alert, Oriented to Person, Oriented to Place, Oriented to Time, Kyle ative, Mild distress, Obese HEENT: Atraumatic, PERRLA, EOMI, Mouth Mucous membr. moist/[place], Nose Mucous membr. moist/[place] Neck: Normal Range of Motion Carotids: WNL Thyroid: WNL Lungs: Speaks full Sentences, Respiratory Distress, Wheezes (bilat all lung jefferson), Rales, Prolonged Expiration. No: Normal air movement Cardiovascular: Regular rate, Normal S1, Normal S2, No murmurs. No: Gallops, Rubs Murmur: Diastolic Murmur Heart Murmur Grade: I Abdomen: Normal bowel sounds, Soft, No tenderness, No hepatospenomegaly, No masses, Vental Hernia Integumentary: Normal, [place], Warm, Dry Extremities: No clubbing, No cyanosis, No edema, Normal pulses, No tenderness/swelling Neurological: Normal gait, Normal speech, Strength Equal Bilat, Normal tone, Sensation intact, Cranial nerves 3-12 NL, Reflexes 2+ Psych/Mental Status: Mental status NL, Mood NL, Appropriate Affect, Intact Judgment - Laboratory Results Laboratory Results: Laboratory Results 04/03/19 04/03/19 11:10 11:10 WBC 5.70 RBC 3.77 L Hgb 11.7 Hct 34.7 MCV 92.0 MCH 31.1 MCHC 33.8 RDW 11.6 Plt Count 203 Neut % (Auto) 62.5 Lymph % (Auto) 22.4 [place] % (Auto) 8.3 Eos % (Auto) 6.3 Baso % (Auto) 0.5 Neut # (Auto) 3.5 Lymph # (Auto) 1.3 [place] # (Auto) 0.5 Eos # (Auto) 0.4 Baso # (Auto) 0.0 Sodium 143 Potassium 4.3 Chloride 107 Carbon Dioxide 28 Anion Gap 12.3 BUN 20 H Creatinine 0.75 Estimated Creat Clear 87 Est GFR ( Amer) > 60 Est GFR (Non-Af Amer) > 60 Glucose 103 Calcium 10.3 H Total Bilirubin 0.4 AST 29 ALT 14 Alkaline Phosphatase 68 Total Protein 7.1 Albumin 4.2 Assessment/Plan - Assessment/Plan (1) COPD exacerbation Status: Acute Current Visit: Yes (2) GERD (gastroesophageal reflux disease) Status: Chronic Current Visit: No (3) Hypertension Status: Chronic Current Visit: No (4) History of colon cancer Status: Acute Current Visit: Yes VTE Assessment - RISK FACTOR SCORE VTE RISK FACTOR SCORES: AGE OVER 60 YEARS, ACUTE RESPIRATORY FAILURE/SEVERE COPD
[2019-04-03] MEDS: MELATONIN 3 MG TABLET PO PRN (21:07)
[2019-04-03] MEDS: methylPREDNISolone SOD SUCC 40 MG/ML VIAL IVP SCH (21:08)
[2019-04-03] MEDS: CARVEDILOL 12.5 MG TABLET PO SCH (22:30)
--- NOTE | 2019-04-04 01:40 | Diagnostic Imaging Report ---
PATIENT MR#: [id number] PATIENT PATIENT NAME: LEWIS JACK DATE OF : 1935 REFERRING PHYSICIAN: Karlo Rodriguez EXAM DATE: 04/03/2019 ACCESSION NUMBER: [id number] EXAM DESCRIPTION: CHEST 2VIEW HISTORY: DYSPNEA; COUGH. COMPARISON: October 30, 2018. CHEST RADIOGRAPH, FRONTAL AND LATERAL: Upper mediastinum: Not widened. Heart: Moderate cardiomegaly. Lungs: Again noted are chronic bilateral interstitial changes. Chronic elevation of the right hemidia phragm. No lobar infiltrate, pneumothorax or significant effusion. Skeleton: Right proximal humeral ORIF. IMPRESSION: Chronic bilateral interstitial changes without acute infiltrate. Read by: Dr. Gato oCe Transcribed by: Gato Coe Transcribed Date: 04/04/2019 1:38:33 AM Electronically signed by: Dr. Gato Coe Date signed: 04/04/2019 1:39:30 AM
[2019-04-04] MEDS: IPRATROPIUM/ALBUTEROL SULFATE 3 ML AMPUL.NEB NEB SCH ×6 (04:31→20:59)
[2019-04-04] MEDS: CARVEDILOL 12.5 MG TABLET PO SCH ×2 (08:29→20:46)
[2019-04-04] MEDS: methylPREDNISolone SOD SUCC 40 MG/ML VIAL IVP SCH ×3 (08:29→20:49)
[2019-04-04] MEDS: CEFDINIR 300 MG CAPSULE PO SCH ×2 (08:29→20:46)
[2019-04-04] MEDS: ENOXAPARIN SODIUM 30 MG/0.3 ML DISP.SYRIN SQ SCH (08:29)
[2019-04-04] MEDS: SODIUM CHLORIDE 0.9 % (FLUSH) 10 ML DISP.SYRIN IV SCH ×2 (08:35→21:05)
--- NOTE | 2019-04-04 10:53 | Inpatient Progress Note ---
Subjective - Required Recertification Statement I anticipate X number of days because-include discharge plan: 2 - Review of Systems Subjective: Patient feeling a bit better but still gets fairly SOB, Objective - Exam Vitals and I&O: Vital Signs Temp 98.5 F 04/04/19 10:20 Pulse 70 04/04/19 10:20 Resp 18 04/04/19 10:20 BP 154/68 04/04/19 10:20 Pulse Ox 91 L 04/04/19 08:51 Intake & Output 04/03/19 04/03/19 04/04/19 11:59 23:59 11:59 Intake Total 606 126 Balance 606 126 Weight 87.543 kg 87.543 kg Intake: IV 6 6 Left Antecubital 6 6 Oral 600 120 Other: Voiding Method Toilet Toilet Toilet # Voids 2 # Bowel Movements 0 0 General: Alert, Oriented to Person, Oriented to Place, Oriented to Time, Cooperative, No acute distress Lungs: Wheezes, Rhonchi Cardiovascular: Regular rate - Results Results: Laboratory Results WBC 5.70 K/ul (4.00-12.00) 04/03/19 11:10 RBC 3.77 M/ul (3.90-5.20) L 04/03/19 11:10 Hgb 11.7 g/dL (11.5-16.0) 04/03/19 11:10 Hct 34.7 % (34.5-46.5) 04/03/19 11:10 MCV 92.0 fl (80.0-100.0) 04/03/19 11:10 MCH 31.1 pg (28.0-34.0) 04/03/19 11:10 MCHC 33.8 g/dL (30.0-36.0) 04/03/19 11:10 RDW 11.6 % (11.3-14.3) 04/03/19 11:10 Plt Count 203 K/mm3 (130-400) 04/03/19 11:10 Neut % (Auto) 62.5 % (39.0-79.0) 04/03/19 11:10 Lymph % (Auto) 22.4 % (16.0-50.0) 04/03/19 11:10 Bee % (Auto) 8.3 % (0.0-11.0) 04/03/19 11:10 Eos % (Auto) 6.3 % (0.0-6.8) 04/03/19 11:10 Baso % (Auto) 0.5 % (0.0-1.5) 04/03/19 11:10 Neut # (Auto) 3.5 # k/uL (1.4-7.7) 04/03/19 11:10 Lymph # (Auto) 1.3 # k/uL (0.6-4.0) 04/03/19 11:10 Bee # (Auto) 0.5 # k/uL (0.0-0.9) 04/03/19 11:10 Eos # (Auto) 0.4 # k/uL (0.0-0.6) 04/03/19 11:10 Baso # (Auto) 0.0 # k/uL (0.0-0.5) 04/03/19 11:10 Sodium 143 mmol/L (137-145) 04/03/19 11:10 Potassium 4.3 mmol/L (3.5-5.1) 04/03/19 11:10 Chloride 107 mmol/L (98-107) 04/03/19 11:10 Carbon Dioxide 28 mmol/L (22-30) 04/03/19 11:10 Anion Gap 12.3 04/03/19 11:10 BUN 20 mg/dL (7-17) H 04/03/19 11:10 Creatinine 0.75 mg/dL (0.52-1.04) 04/03/19 11:10 Estimated Creat Clear 87 04/03/19 11:10 Est GFR ( Amer) > 60 (60-) 04/03/19 11:10 Est GFR (Non-Af Amer) > 60 (60-) 04/03/19 11:10 Glucose 103 mg/dL (74-106) 04/03/19 11:10 Calcium 10.3 mg/dL (8.4-10.2) H 04/03/19 11:10 Total Bilirubin 0.4 mg/dL (0.2-1.3) 04/03/19 11:10 AST 29 U/L (15-46) 04/03/19 11:10 ALT 14 U/L (4-35) 04/03/19 11:10 Alkaline Phosphatase 68 U/L (38-126) 04/03/19 11:10 Total Protein 7.1 g/dL (6.3-8.2) 04/03/19 11:10 Albumin 4.2 g/dL (3.5-5.0) 04/03/19 11:10 Assessment/Plan - Assessment/Plan (1) COPD exacerbation Status: Acute Current Visit: Yes Plan: Increase frequency of steroids. Wean O2 as tolerated. Restart PPI and singulair.
[2019-04-04] MEDS: hydroCHLOROthiazide 25 MG TABLET PO SCH (12:35)
[2019-04-04] MEDS: MONTELUKAST SODIUM 10 MG TABLET PO SCH (12:36)
[2019-04-04] MEDS: MELATONIN 3 MG TABLET PO PRN (20:47)
[2019-04-05] MEDS: IPRATROPIUM/ALBUTEROL SULFATE 3 ML AMPUL.NEB NEB SCH ×6 (01:18→21:52)
[2019-04-05] MEDS: methylPREDNISolone SOD SUCC 40 MG/ML VIAL IVP SCH ×3 (05:51→22:03)
[2019-04-05] MEDS: PANTOPRAZOLE SODIUM 40 MG TABLET.DR PO SCH (06:09)
[2019-04-05 07:28] LABS: BASOPHILS % 0.3 % (0.0-1.5); NEUTROPHILS # 6.7 # k/uL (1.4-7.7); eGFR (Non-African) > 60
--- NOTE | 2019-04-05 08:30 | Inpatient Progress Note ---
Subjective - Required Recertification Statement I anticipate X number of days because-include discharge plan: 1 - Review of Systems Subjective: Patient doing some better. Still coughing quite a bit. Objective - Exam Vitals and I&O: Vital Signs Temp 97.6 F 04/05/19 06:00 Pulse 61 04/05/19 06:00 Resp 18 04/05/19 06:00 BP 175/82 04/05/19 06:00 Pulse Ox 94 04/05/19 06:00 Intake & Output 04/04/19 04/04/19 04/05/19 11:59 23:59 11:59 Intake Total 126 1443 360 Balance 126 1443 360 Weight 87.543 kg Intake: IV 6 3 Left Antecubital 6 Right Wrist 3 Oral 120 1440 360 Other: Voiding Method Toilet Toilet Toilet # Bowel Movements 0 0 General: Alert, Oriented to Person, Oriented to Place, Oriented to Time, No acute distress Lungs: Wheezes (improved) Cardiovascular: Regular rate - Results Results: Laboratory Results WBC 7.80 K/ul (4.00-12.00) 04/05/19 06:00 RBC 3.47 M/ul (3.90-5.20) L 04/05/19 06:00 Hgb 11.0 g/dL (11.5-16.0) L 04/05/19 06:00 Hct 32.7 % (34.5-46.5) L 04/05/19 06:00 MCV 94.0 fl (80.0-100.0) 04/05/19 06:00 MCH 31.7 pg (28.0-34.0) 04/05/19 06:00 MCHC 33.6 g/dL (30.0-36.0) 04/05/19 06:00 RDW 9.9 % (11.3-14.3) L 04/05/19 06:00 Plt Count 207 K/mm3 (130-400) 04/05/19 06:00 Neut % (Auto) 85.8 % (39.0-79.0) H 04/05/19 06:00 Lymph % (Auto) 9.1 % (16.0-50.0) L 04/05/19 06:00 [place] % (Auto) 4.0 % (0.0-11.0) 01/02/20 06:00 Eos % (Auto) 0.8 % (0.0-6.8) 04/05/19 06:00 Baso % (Auto) 0.3 % (0.0-1.5) 04/05/19 06:00 Neut # (Auto) 6.7 # k/uL (1.4-7.7) 04/05/19 06:00 Lymph # (Auto) 0.7 # k/uL (0.6-4.0) 04/05/19 06:00 [place] # (Auto) 0.3 # k/uL (0.0-0.9) 04/05/19 06:00 Eos # (Auto) 0.1 # k/uL (0.0-0.6) 04/05/19 06:00 Baso # (Auto) 0.0 # k/uL (0.0-0.5) 04/05/19 06:00 Sodium 139 mmol/L (137-145) 04/05/19 06:00 Potassium 4.4 mmol/L (3.5-5.1) 04/05/19 06:00 Chloride 103 mmol/L (98-107) 04/05/19 06:00 Carbon Dioxide 28 mmol/L (22-30) 04/05/19 06:00 Anion Gap 12.4 04/05/19 06:00 BUN 31 mg/dL (7-17) H 04/05/19 06:00 Creatinine 0.90 mg/dL (0.52-1.04) 04/05/19 06:00 Estimated Creat Clear 72 04/05/19 06:00 Est GFR ( Amer) > 60 (60-) 04/05/19 06:00 Est GFR (Non-Af Amer) > 60 (60-) 04/05/19 06:00 Glucose 146 mg/dL (74-106) H 04/05/19 06:00 Calcium 10.4 mg/dL (8.4-10.2) H 04/05/19 06:00 Total Bilirubin 0.3 mg/dL (0.2-1.3) 04/05/19 06:00 AST 30 U/L (15-46) 04/05/19 06:00 ALT 17 U/L (4-35) 04/05/19 06:00 Alkaline Phosphatase 56 U/L (38-126) 04/05/19 06:00 Total Protein 6.7 g/dL (6.3-8.2) 04/05/19 06:00 Albumin 3.8 g/dL (3.5-5.0) 04/05/19 06:00 Assessment/Plan - Assessment/Plan (1) COPD exacerbation Status: Acute Current Visit: Yes Plan: Patient is improving but will add zithromax 500 mg daily x 3 days po as I suspect she may have a component of infection though not pneumonia. Encourage her to keep walking in halls today. Hope to wean off O2 to plan for discharge in 1-2 days.
[2019-04-05] MEDS: hydroCHLOROthiazide 25 MG TABLET PO SCH (08:38)
[2019-04-05] MEDS: MONTELUKAST SODIUM 10 MG TABLET PO SCH (08:38)
[2019-04-05] MEDS: CARVEDILOL 12.5 MG TABLET PO SCH ×2 (08:39→21:49)
[2019-04-05] MEDS: CEFDINIR 300 MG CAPSULE PO SCH ×2 (08:39→21:48)
[2019-04-05] MEDS: ENOXAPARIN SODIUM 30 MG/0.3 ML DISP.SYRIN SQ SCH (08:39)
[2019-04-05] MEDS: SODIUM CHLORIDE 0.9 % (FLUSH) 10 ML DISP.SYRIN IV SCH ×2 (08:41→22:25)
[2019-04-05] MEDS: FUROSEMIDE 20 MG TABLET PO SCH (08:57)
[2019-04-05] MEDS: AZITHROMYCIN 250 MG TABLET PO SCH (08:58)
[2019-04-05] MEDS: MELATONIN 3 MG TABLET PO PRN (21:49)
[2019-04-06] MEDS: IPRATROPIUM/ALBUTEROL SULFATE 3 ML AMPUL.NEB NEB SCH ×6 (00:50→20:19)
[2019-04-06] MEDS: methylPREDNISolone SOD SUCC 40 MG/ML VIAL IVP SCH ×3 (05:12→20:12)
[2019-04-06] MEDS: PANTOPRAZOLE SODIUM 40 MG TABLET.DR PO SCH (05:31)
[2019-04-06] MEDS: CARVEDILOL 12.5 MG TABLET PO SCH ×2 (08:18→20:09)
[2019-04-06] MEDS: AZITHROMYCIN 250 MG TABLET PO SCH (08:18)
[2019-04-06] MEDS: ENOXAPARIN SODIUM 30 MG/0.3 ML DISP.SYRIN SQ SCH (08:18)
[2019-04-06] MEDS: hydroCHLOROthiazide 25 MG TABLET PO SCH (08:19)
[2019-04-06] MEDS: MONTELUKAST SODIUM 10 MG TABLET PO SCH (08:19)
[2019-04-06] MEDS: FUROSEMIDE 20 MG TABLET PO SCH (08:19)
[2019-04-06] MEDS: CEFDINIR 300 MG CAPSULE PO SCH ×2 (08:19→20:09)
[2019-04-06] MEDS: SODIUM CHLORIDE 0.9 % (FLUSH) 10 ML DISP.SYRIN IV SCH ×2 (09:00→20:22)
--- NOTE | 2019-04-06 15:52 | Inpatient Progress Note ---
Subjective - Required Recertification Statement I anticipate X number of days because-include discharge plan: Unknown - Review of Systems Events since last encounter: Per staff patient has been walking in the [place] today, JIG FILLER states that patient did really good walking without oxygen but when returning her oxygen sat decreased to 89% but patient did well; no acute resp. distress. She continues to have a dry cough and states that she has not been coughing anything up. Objective - Exam Vitals and I&O: Vital Signs Temp 97.4 F L 04/06/19 10:00 Pulse 72 04/06/19 10:00 Resp 20 04/06/19 10:00 BP 149/75 04/06/19 10:00 Pulse Ox 2 L 04/06/19 10:00 Intake & Output 04/05/19 04/06/19 04/06/19 23:59 11:59 23:59 Intake Total 723 250 363 Balance 723 250 363 Intake: IV 3 10 3 Left AC 10 3 Right Wrist 3 Oral 720 240 360 Other: Voiding Method Toilet Toilet # Bowel Movements 0 General: Alert, Oriented to Person, Oriented to Place, Oriented to Time, Cooperative, No acute distress, Obese HEENT: Mouth Mucous membr. moist/[place], Nose Mucous membr. moist/[place] Neck: Supple, +2 carotid pulse wo bruit Lungs: Clear to auscultation (no wheezing noted), Normal air movement, Speaks full Sentences Cardiovascular: Regular rate Abdomen: Normal bowel sounds, Soft Extremities: No edema, Normal pulses Skin: Normal, [place], Warm Neurological: Normal gait, Normal speech, Strength Equal Bilat, Sensation intact Psych/Mental Status: Mental status NL, Mood NL, Appropriate Affect, Intact Judgment - Results Results: Laboratory Results WBC 7.80 K/ul (4.00-12.00) 04/05/19 06:00 RBC 3.47 M/ul (3.90-5.20) L 04/05/19 06:00 Hgb 11.0 g/dL (11.5-16.0) L 04/05/19 06:00 Hct 32.7 % (34.5-46.5) L 04/05/19 06:00 MCV 94.0 fl (80.0-100.0) 04/05/19 06:00 MCH 31.7 pg (28.0-34.0) 04/05/19 06:00 MCHC 33.6 g/dL (30.0-36.0) 04/05/19 06:00 RDW 9.9 % (11.3-14.3) L 04/05/19 06:00 Plt Count 207 K/mm3 (130-400) 04/05/19 06:00 Neut % (Auto) 85.8 % (39.0-79.0) H 04/05/19 06:00 Lymph % (Auto) 9.1 % (16.0-50.0) L 04/05/19 06:00 [place] % (Auto) 4.0 % (0.0-11.0) 04/05/19 06:00 Eos % (Auto) 0.8 % (0.0-6.8) 04/05/19 06:00 Baso % (Auto) 0.3 % (0.0-1.5) 04/05/19 06:00 Neut # (Auto) 6.7 # k/uL (1.4-7.7) 04/05/19 06:00 Lymph # (Auto) 0.7 # k/uL (0.6-4.0) 04/05/19 06:00 [place] # (Auto) 0.3 # k/uL (0.0-0.9) 04/05/19 06:00 Eos # (Auto) 0.1 # k/uL (0.0-0.6) 04/05/19 06:00 Baso # (Auto) 0.0 # k/uL (0.0-0.5) 04/05/19 06:00 Sodium 139 mmol/L (137-145) 04/05/19 06:00 Potassium 4.4 mmol/L (3.5-5.1) 04/05/19 06:00 Chloride 103 mmol/L (98-107) 04/05/19 06:00 Carbon Dioxide 28 mmol/L (22-30) 04/05/19 06:00 Anion Gap 12.4 04/05/19 06:00 BUN 31 mg/dL (7-17) H 04/05/19 06:00 Creatinine 0.90 mg/dL (0.52-1.04) 04/05/19 06:00 Estimated Creat Clear 72 04/05/19 06:00 Est GFR ( Amer) > 60 (60-) 04/05/19 06:00 Est GFR (Non-Af Amer) > 60 (60-) 04/05/19 06:00 Glucose 146 mg/dL (74-106) H 04/05/19 06:00 Calcium 10.4 mg/dL (8.4-10.2) H 04/05/19 06:00 Total Bilirubin 0.3 mg/dL (0.2-1.3) 04/05/19 06:00 AST 30 U/L (15-46) 04/05/19 06:00 ALT 17 U/L (4-35) 04/05/19 06:00 Alkaline Phosphatase 56 U/L (38-126) 04/05/19 06:00 Total Protein 6.7 g/dL (6.3-8.2) 04/05/19 06:00 Albumin 3.8 g/dL (3.5-5.0) 04/05/19 06:00 Assessment/Plan - Assessment/Plan (1) COPD exacerbation Status: Acute Current Visit: Yes Assessment: Patient is feeling much better this afternoon; has been up walking in the hallway and doing well. She c/o cough but improving; non productive. Plan: Will continue to try to wean patient off O2; will continue nebulizers and steroids; Plan is to discharge patient home tomorrow
[2019-04-06] MEDS ORDERED: ACETAMINOPHEN 325 MG TABLET PO PRN (18:25)
[2019-04-06] MEDS: MELATONIN 3 MG TABLET PO PRN (20:09)
[2019-04-07] MEDS: IPRATROPIUM/ALBUTEROL SULFATE 3 ML AMPUL.NEB NEB SCH ×4 (00:38→13:16)
[2019-04-07] MEDS: PANTOPRAZOLE SODIUM 40 MG TABLET.DR PO SCH (05:19)
[2019-04-07] MEDS: methylPREDNISolone SOD SUCC 40 MG/ML VIAL IVP SCH ×2 (05:20→13:09)
[2019-04-07] MEDS: MONTELUKAST SODIUM 10 MG TABLET PO SCH (08:21)
[2019-04-07] MEDS: hydroCHLOROthiazide 25 MG TABLET PO SCH (08:21)
[2019-04-07] MEDS: FUROSEMIDE 20 MG TABLET PO SCH (08:21)
[2019-04-07] MEDS: AZITHROMYCIN 250 MG TABLET PO SCH (08:23)
[2019-04-07] MEDS: SODIUM CHLORIDE 0.9 % (FLUSH) 10 ML DISP.SYRIN IV SCH (08:25)
[2019-04-07] MEDS: ENOXAPARIN SODIUM 30 MG/0.3 ML DISP.SYRIN SQ SCH (08:25)
[2019-04-07] MEDS: CARVEDILOL 12.5 MG TABLET PO SCH (08:26)
[2019-04-07] MEDS: CEFDINIR 300 MG CAPSULE PO SCH (08:26)
--- NOTE | 2019-04-07 14:16 | Discharge Summary ---
Discharge Summary - Discharge [facility] Admission Date: 04/03/19 Discharge Date: 04/07/19 Discharge To: Home History of Present Illness: 84-year-old white female with a known history of COPD and asthma. She was admitted to the hospital due to increasing shortness of breath that started > 1 week ago. Patient had been using her DuoNeb treatments more frequently than normal. She has been wheezing quite a bit and getting short of breath with minimal exertion. Patient has had a cough that has been slightly productive of some green to yellow phlegm. Patient denied any chest pain. Patient was seen in the clinic and when she was ambulating back to the room her pulse ox the drop down to 78%. It did return well with 2 L of oxygen into the mid 90s. Patient was given high flow nebulizer treatment in the office with minimal improvement. Patient was noted to have marked expiratory wheezing bilaterally with some scattered rales. She was admitted at that time. Patient does have a history of recurrent bronchitis/exacerbation of her COPD asthma. Condition at Discharge: Stable Home Medications: Ambulatory Orders Medication Instructions Recorded Cetirizine HCl [Zyrtec] 10 mg PO D 09/05/14 Cholecalciferol [Vitamin D-3] 1,000 unit PO DAILY 09/05/14 Fluticasone Propionate [Flonase] 1 spray NS D 09/05/14 Budesonide/Formoterol Fumarate 10.2 gm IH 07/14/18 [Symbicort 80-4.5 Mcg Inhaler] Cefdinir 300 mg PO BID #20 capsule 04/07/19 Consultations this Visit: None Procedures this Visit: None Allergies/Adverse Reactions: Allergies Allergy/AdvReac Type Severity Reaction Status Date / Time prednisone Allergy Mild Insomnia Verified 04/03/19 11:35 penicillin G Allergy Unknown Verified 04/26/12 18:20 levofloxacin [From Levaquin] AdvReac Intermediate Localized Verified 07/29/17 10:45 Redness Discharge Summary: 84 year old female sitting up in chair; states that she is feeling much better; still has an occasional nonproductive cough; she has been walking in the [place] with nursing; oxygen saturations are remaining around 92% without oxygen. She feels ready to go home; she will continue on home medications and will continue Omnicef twice a day. Hospital Course: Neb treatments, steroids, antibiotics, cough suppressant, oxygen - Final Diagnosis (1) COPD exacerbation Problems: Stable; patient has been weaned off oxygen; feeling much better; LCTA Right or Left: Right
[2019-04-07 15:35] VITALS: BP 155/74
== END 2019-04-07 15:10 | disposition home or self-care (01) | DRG 192 ==
LOC: SOUTH 10:05 → UNDOADMIN 10:05
PROVIDERS: ADMIT Family Medicine; ATTEND Family Medicine
DX: J44.1 Chronic obstructive pulmonary disease with (acute) exacerbation (principal); E66.9 Obesity, unspecified; F41.9 Anxiety disorder, unspecified; M81.0 Age-related osteoporosis without current pathological fracture; I10 Essential (primary) hypertension; I34.0 Nonrheumatic mitral (valve) insufficiency; K21.9 Gastro-esophageal reflux disease without esophagitis; Z79.899 Other long term (current) drug therapy; Z79.51 Long term (current) use of inhaled steroids; Z88.1 Allergy status to other antibiotic agents; Z88.0 Allergy status to penicillin; Z88.8 Allergy status to other drugs, medicaments and biological substances; Z86.718 Personal history of other venous thrombosis and embolism; Z85.038 Personal history of other malignant neoplasm of large intestine; Z90.49 Acquired absence of other specified parts of digestive tract; Z98.49 Cataract extraction status, unspecified eye; Z90.710 Acquired absence of both cervix and uterus; Z96.659 Presence of unspecified artificial knee joint; Z68.39 Body mass index [BMI] 39.0-39.9, adult
CPT/HCPCS: 36415; 80053; 85025; 87040; 94640; 94760; 96374; 99231; 99238; 99282; 99284; J1650; J2920; J2930; J1030; S1016

== ENCOUNTER 2019-04-12 15:22 | Outpatient (CLI) | payer OTHER ==
[2019-04-12 15:36] LABS: eGFR (Non-African) > 60
[2019-04-12 15:41] LABS: BASOPHILS % 0.5 % (0.0-1.5); NEUTROPHILS # 5.2 # k/uL (1.4-7.7)
== END 2019-04-12 15:27 ==
LOC: LABRHC 15:22
PROVIDERS: ATTEND Family Medicine
DX: R53.83 Other fatigue (principal)
CPT/HCPCS: 80048; 85025